=== PATIENT | female | born 1955 | race Caucasian/White ===

== ENCOUNTER 2016-11-04 16:55 | Emergency (ER) | payer SELFPAY | END 2016-11-04 17:33 | disposition left against medical advice (07) | LOC: UCCORT 16:55 | DX: N39.9 Disorder of urinary system, unspecified (principal); Z53.21 Procedure and treatment not carried out due to patient leaving prior to being seen by health care provider | CPT/HCPCS: 99211; G0463 ==

== ENCOUNTER 2016-11-05 11:39 | Emergency (ER) | payer SELFPAY ==
[2016-11-05 15:05] VITALS: BP 116/67
--- NOTE | 2016-11-05 15:05 | UC ---
Complaint Female HPI - HPI Summary HPI Summary: complaint of pain wuith urination that started 2 days ago increased frequency and urgency difficulty getting urine out denies fever and chills slight back pain today took some tylenol with some relief and heating pad - History Of Current Complaint Stated Complaint: UTI COMPLAINT Time Seen by Provider: 11/05/16 14:53 Hx Obtained From: Patient - Allergies/Home Medications Allergies/Adverse Reactions: Allergies Allergy/AdvReac Type Severity Reaction Status Date / Time Penicillins Allergy Intermediate Rash Verified 11/05/16 15:05 Erythromycin AdvReac Intermediate GI Upset Verified 11/05/16 15:05 Tetracycline AdvReac Intermediate GI Upset Verified 11/05/16 15:05 PMH/Surg Hx/FS Hx/Imm Hx Previously Healthy: Yes Endocrine History Of: Reports: Thyroid Disease - HX thyroidectomy Denies: Diabetes Cardiovascular History Of: Reports: Hypertension Denies: Cardiac Disorders Respiratory History Of: Denies: COPD, Asthma GI/ History Of: Denies: Ulcer Neurological History Of: Denies: TIA Psychological History Of: Denies: Anxiety Cancer History Of: Denies: Lung Cancer - Surgical History Surgical History: Yes Surgery Procedure, Year, and Place: LEFT KNEE REPLACEMENT, LEFT THYROIDECTOMY now Right - Family History Known Family History: Positive: None Negative: Cardiac Disease, Hypertension, Diabetes - Social History Occupation: Employed Full-time Lives: With Family Alcohol Use: Rare Substance Use Type: None Smoking Status (MU): Former Smoker Have You Smoked in the Last Year: No When Did the Patient Quit Smoking/Using Tobacco: 10/06/12 Review of Systems Constitutional: Negative Skin: Negative Eyes: Negative ENT: Negative Respiratory: Negative Cardiovascular: Negative Gastrointestinal: Abdominal Pain Genitourinary: Dysuria, Hematuria, Frequency, Urgency Motor: Negative Neurovascular: Negative Musculoskeletal: Negative Neurological: Negative Psychological: Negative All Other Systems Reviewed And Are Negative: Yes Physical Exam Triage Information Reviewed: Yes Appearance: No Pain Distress, Well-Nourished, Obese Vital Signs Reviewed: Yes Eyes: Positive: Conjunctiva Clear ENT: Positive: Pharynx normal, TMs normal. Negative: Nasal congestion Neck: Positive: No Lymphadenopathy Respiratory: Positive: Lungs clear, Normal breath sounds, No respiratory distress Abdomen Description: Positive: Nontender, No Organomegaly, Soft. Negative: CVA Tenderness (R), CVA Tenderness (L), Distended, Guarding Bowel Sounds: Positive: Present Musculoskeletal: Positive: No Edema Neurological: Positive: Alert Psychological Exam: Normal Skin Exam: Normal Complaint Female Dx - Differential Dx/Diagnosis Differential Diagnosis/HQI/PQRI: Ureteral Stone, Urinary Tract Infection Provider Diagnoses: UTI Discharge - Discharge Plan Condition: Stable Disposition: HOME Prescriptions: Phenazopyridine TAB* [Pyridium TAB*] 100 mg PO TID #9 tab Sulfamethox/Trimethoprim DS* [Bactrim DS 800/160 TAB*] 1 tab PO BID #10 tab Patient Education Materials: Urinary Tract Infection in Women (ED) Referrals: NORBERTO Aleman [Primary Care Provider] - Additional Instructions: Start antibiotic and pyridium as directed Increase fluids and rest Take acetaminophen or ibuprofen for fever or pain Please review your discharge instructions. If your symptoms do not improve please call your primary care provider or return to urgent care
== END 2016-11-05 15:29 | disposition home or self-care (01) ==
LOC: UCCORT 11:39
DX: N39.0 Urinary tract infection, site not specified (principal); E66.9 Obesity, unspecified; Z96.652 Presence of left artificial knee joint; Z87.891 Personal history of nicotine dependence; Z88.0 Allergy status to penicillin; Z88.1 Allergy status to other antibiotic agents
CPT/HCPCS: 87086; 99212; G0463

== ENCOUNTER 2017-01-18 15:25 | Emergency (ER) | payer OTHER ==
[2017-01-18 15:42] VITALS: BP 145/81
--- NOTE | 2017-01-18 15:55 | UC ---
Respiratory Complaint HPI - HPI Summary HPI Summary: The patient comes in today for: 1. Sinus pressure/rhinitis; Onset: 2-3 days. Palliative/provocative: Nothing makes her symptoms better or worse. Quality: Pressure. Region: Frontal and maxillary Severity: 0/10 Time: Constant. Associated symptoms: Upper tooth pain: Present Rhinitis: yellow Fevers: 100 "a couple nights ago." Chest pain: NOne. Dyspnea: None. Cough: Present and productive of brown material. Cough is nocturnal. Home treatment: [place]. Hoarse voice: present for "a couple days." * - History of Current Complaint Chief Complaint: UCRespiratory Stated Complaint: THROAT,SINUSES Time Seen by Provider: 01/18/17 15:43 Hx Obtained From: Patient, Family/Health And Wellness Advisor Hx Last Menstrual Period: "Long times ago." - Allergies/Home Medications Allergies/Adverse Reactions: Allergies Allergy/AdvReac Type Severity Reaction Status Date / Time Penicillins Allergy Intermediate Rash Verified 01/18/17 15:42 Erythromycin AdvReac Intermediate GI Upset Verified 01/18/17 15:42 Tetracycline AdvReac Intermediate GI Upset Verified 01/18/17 15:42 PMH/Surg Hx/FS Hx/Imm Hx Previously Healthy: No Endocrine History Of: Reports: Thyroid Disease - HX thyroidectomy, Dyslipidemia Denies: Diabetes, Hyperthyroidism, Hypothyroidism Cardiovascular History Of: Reports: Hypertension Denies: Cardiac Disorders, Pacemaker/ICD, Myocardial Infarction, Congestive Heart Failure, Atrial Fibrillation, Deep Vein Thrombosis, Bleeding Disorders Respiratory History Of: Denies: COPD, Asthma, Bronchitis, Pneumonia, Pulmonary Embolism GI/ History Of: Reports: Gastroesophageal Reflux Denies: Ulcer, Gastrointestinal Bleed, Gall Bladder Disease, Kidney Stones, Diverticulitis, Renal Disease, Urosepsis Neurological History Of: Denies: TIA, CVA, Dementia, Seizures, Migraine Psychological History Of: Reports: Anxiety Denies: Depression, Bipolar Disorder, Schizophrenia, Post Traumatic Stress Disorder Cancer History Of: Denies: Lung Cancer, Colorectal Cancer, Breast Cancer, Prostate Cancer, Cervical Cancer Other History Of: Negative For: HIV, Hepatitis B, Hepatitis C, Anticoagulant Therapy - Surgical History Surgical History: Yes Surgery Procedure, Year, and Place: LEFT KNEE REPLACEMENT, LEFT THYROIDECTOMY now Right - Family History Known Family History: Negative: Cardiac Disease, Hypertension, Diabetes - Social History Occupation: Employed Full-time Alcohol Use: None Substance Use Type: None Smoking Status (MU): Former Smoker Have You Smoked in the Last Year: No When Did the Patient Quit Smoking/Using Tobacco: 10/06/12 - Immunization History Most Recent Influenza Vaccination: [id number] Review of Systems Constitutional: Negative Skin: Negative Eyes: Negative ENT: Nasal Discharge Respiratory: Cough Cardiovascular: Negative Gastrointestinal: Negative Genitourinary: Negative All Other Systems Reviewed And Are Negative: Yes Physical Exam Triage Information Reviewed: Yes Appearance: Well-Appearing, No Pain Distress, Well-Nourished Vital Signs: Initial Vital Signs Temp 99.5 F 01/18/17 15:37 Pulse 75 01/18/17 15:37 Resp 16 01/18/17 15:37 BP 145/81 01/18/17 15:37 Pulse Ox 99 01/18/17 15:37 Vital Signs Reviewed: Yes Eyes: Positive: Conjunctiva Clear. Negative: Discharge ENT: Positive: Hearing grossly normal. Negative: Pharyngeal erythema, Nasal congestion, Nasal drainage, TM bulging, TM dull, TM red, Tonsillar swelling, Tonsillar exudate Dental: Negative: Gross Decay/Caries @, Dental Fracture @ Neck: Positive: Supple, Nontender, No Lymphadenopathy, Other: - She has a hoarse voice. Sinuses are tender to palpation.. Negative: Nuchal Rigidity Respiratory: Positive: Lungs clear, No respiratory distress, No accessory muscle use. Negative: Crackles, Wheezing Cardiovascular: Positive: RRR, No Murmur Abdomen Description: Positive: Nontender, No Organomegaly, Soft. Negative: Distended, Guarding Musculoskeletal: Positive: Strength Intact, ROM Intact, No Edema Neurological: Positive: Alert, Muscle Tone Normal Psychological: Positive: Age Appropriate Behavior, Consolable Skin: Negative: rashes, breakdown UC Diagnostic Evaluation - Laboratory O2 Sat by Pulse Oximetry: 99 Respiratory Course/Dx - Differential Dx/Diagnosis Differential Diagnosis/HQI/PQRI: Asthma, Bronchitis, Laryngitis, Sinusitis Provider Diagnoses: Slightly high blood pressure. Sinusitis. Bronchitis. Laryngitis Discharge - Discharge Plan Condition: Stable Disposition: HOME Patient Education Materials: Sinusitis (ED), Acute Bronchitis (ED), Laryngitis (ED) Referrals: NORBERTO Aleman [Primary Care Provider] - 1 Week (Please see your primary care provider in about one to two weeks to see how well you are doing. If you get worse, please be seen sooner.)
== END 2017-01-18 16:17 | disposition home or self-care (01) ==
LOC: UCCORT 15:25
DX: J32.9 Chronic sinusitis, unspecified (principal); J40 Bronchitis, not specified as acute or chronic; J04.0 Acute laryngitis; R03.0 Elevated blood-pressure reading, without diagnosis of hypertension; E78.5 Hyperlipidemia, unspecified; I10 Essential (primary) hypertension; K21.9 Gastro-esophageal reflux disease without esophagitis; F41.9 Anxiety disorder, unspecified; E89.0 Postprocedural hypothyroidism; Z96.652 Presence of left artificial knee joint; Z88.1 Allergy status to other antibiotic agents; Z88.0 Allergy status to penicillin
CPT/HCPCS: 99212; G0463

== ENCOUNTER 2017-04-20 17:41 | Emergency (ER) | payer OTHER ==
--- NOTE | 2017-04-20 17:52 | UC ---
Skin Complaint HPI - HPI Summary HPI Summary: 89 year old female presents with dog scratch on right forearm. - History of Current Complaint Time Seen by Provider: 04/20/17 17:52 Stated Complaint: SKIN COMPLAINT Hx Last Menstrual Period: "Long times ago." - Allergy/Home Medications Allergies/Adverse Reactions: Allergies Allergy/AdvReac Type Severity Reaction Status Date / Time Penicillins Allergy Intermediate Rash Verified 04/20/17 18:05 Erythromycin AdvReac Intermediate GI Upset Verified 04/20/17 18:05 Tetracycline AdvReac Intermediate GI Upset Verified 04/20/17 18:05 Azithromycin AdvReac Vomiting Verified 04/20/17 18:05 Home Medications: Home Medications Meloxicam [Mobic] 7.5 mg PO DAILY 04/20/17 [History Confirmed 04/20/17] Rosuvastatin (NF) [Crestor (NF)] 10 mg PO DAILY 04/20/17 [History Confirmed ] Thyroid [Shoe Clerk Thyroid 15] 60 mg PO DAILY 04/20/17 [History Confirmed 04/20/17] Venlafaxine EXT RELEASE CAP* [Effexor Xr CAP*] 150 mg PO DAILY 04/20/17 [ History Confirmed 04/20/17] Review of Systems Constitutional: Negative Skin: Other - right forearm dog scratch Eyes: Negative ENT: Negative Respiratory: Negative Cardiovascular: Negative Gastrointestinal: Negative Genitourinary: Negative Motor: Negative Neurovascular: Negative Musculoskeletal: Negative Neurological: Negative Psychological: Negative All Other Systems Reviewed And Are Negative: Yes PMH/Surg Hx/FS Hx/Imm Hx Other History Of: Negative For: HIV, Hepatitis B, Hepatitis C, Anticoagulant Therapy - Surgical History Surgical History: Yes Surgery Procedure, Year, and Place: LEFT KNEE REPLACEMENT, LEFT THYROIDECTOMY now Right - Family History Known Family History: Positive: None Negative: Cardiac Disease, Hypertension, Diabetes - Social History Alcohol Use: None Substance Use Type: None Smoking Status (MU): Former Smoker Have You Smoked in the Last Year: No When Did the Patient Quit Smoking/Using Tobacco: 10/06/12 - Immunization History Most Recent Influenza Vaccination: [id number] Physical Exam Triage Information Reviewed: Yes Eye Exam: Normal ENT Exam: Normal Dental Exam: Normal Neck exam: Normal Neck: Positive: 1 Respiratory Exam: Normal Cardiovascular Exam: Normal Abdominal Exam: Normal Musculoskeletal Exam: Normal Neurological Exam: Normal Psychological Exam: Normal Skin: Positive: Other - right forearm dog scratch Course/Dx - Diagnoses Provider Diagnoses: right forearm dog scratch Discharge - Discharge Plan Condition: Stable Disposition: HOME Prescriptions: Fluconazole [Fluconazole 150 mg tab] 150 mg PO ONCE #1 tab Sulfamethox/Trimethoprim DS* [Bactrim DS 800/160 TAB*] 1 tab PO BID #14 tab Patient Education Materials: Acute Rash (ED) Referrals: NORBERTO Aleman [Primary Care Provider] - If Needed
[2017-04-20] MEDS ORDERED: Tetan/Diph/Pertus SYR(Tdap)* 0.5 ML SYR(BOOSTRIX) use SYR IM ONE (17:59)
[2017-04-20 18:12] VITALS: BP 111/67
== END 2017-04-20 18:38 | disposition home or self-care (01) ==
LOC: UCCORT 17:41
DX: S50.811A Abrasion of right forearm, initial encounter (principal); X58.XXXA Exposure to other specified factors, initial encounter; Y93.9 Activity, unspecified; Y92.9 Unspecified place or not applicable; Y99.9 Unspecified external cause status
CPT/HCPCS: 90471; 90715; 99212; G0463

== ENCOUNTER 2018-05-21 21:43 | Emergency (ER) | payer OTHER ==
--- OUTSIDE RECORDS SUMMARY | 2018-05-21 21:53 | XMS REPORT ---
:1955 External Reference #:[id number] Author Organization [facility] Address [address], [address] [place] [address] Phone [phone] Care Team Providers Name Role Phone Neyda Lemos PA Care Team Information Call Manager Unavailable Neyda Lemos PA Primary Care Physician Unavailable Payers Type Date Identification Numbers Payment Provider Subscriber Commercial Effective: Policy Number: [employer] Afshan Coleman 2017 [id number] PayID: [id number] [address] [place] [address] Problems Date Description Provider Status Onset: 04/15/2017 Bilateral carpal tunnel syndrome IGNACIO Storm Active Onset: 07/30/2017 Malignant tumor of rectum Rowenakaterina Hogue, DO Active Onset: 07/30/2017 Embolism from thrombosis of vein of Rowena Mykel, DO Active distal lower extremity Onset: 10/11/2017 Pulmonary embolism Rowena Mykel, DO Active Onset: 10/11/2017 Acute embolism and thrombosis of left Rowena Bocoltonal, DO Active internal jugular vein Onset: 10/11/2017 Acute embolism and thrombosis of left Rowena Dustinal, DO Active subclavian vein Onset: 10/11/2017 Acute embolism and thrombosis of left Rowena Dustinal, DO Active axillary vein Onset: 02/20/2018 Disturbance in sleep behavior IGNACIO Leal Active Onset: 02/20/2018 Essential hypertension IGNACIO Leal Active Onset: 02/20/2018 Hyperlipidemia IGNACIO Leal Active Onset: 02/20/2018 Adjustment disorder with depressed mood IGNACIO Leal Active Onset: 02/20/2018 Malignant tumor of colon Aidee Banks M.D. 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 Onset: 03/31/2018 Arthroplasty of knee IGNACIO Storm Active Onset: 03/16/2018 Polyneuropathy due to drug Rowena Hogue DO Active Onset: 03/16/2018 History of thromboembolism of vein Rowena Hogue DO Active Family History Date Family Member(s) Problem(s) Comments Father Blood Clot Father due to Heart Attack () - Blood Clot Mother Lung Cancer Mother due to Lung Cancer () Mother due to Cancer () - Bone Uncle Emphysema Social History Type Date Description Comments Marital Status Lives With Alone Diet Patient follows no dietary restrictions Occupation Disabled [employer] Cigarette Use Quit 5 years ago ETOH Use Denies alcohol use Recreational Drug Use Denies Drug Use Smoking Patient is a former smoker As of 2018 quit 6 years ago Daily Caffeine Current Caffeine User Daily Caffeine Consumes on average 1 cup of regular coffee per day Allergies, Adverse Reactions, Alerts Date Description Reaction Status Severity Comments 04/15/2017 Tetracycline active 04/15/2017 Penicillin active 04/15/2017 Erythromycin inactive 04/15/2017 Azithromycin inactive Medications Medication Date Status Form Strength Qnty SIG Indications Ordering Provider Venlafaxine 04/15/ Active Caps ER 150mg 30cap 1 by mouth F41.9 Cayla HCL ER 2017 24HR s every day Sid Ribera Gabapentin 02/23/ Active Capsules 100mg 180ca Take Two Rowena 2018 ps Capsules By jB Hogue Three DO Times A Day Colace 01/19/ Active Capsules 100mg 30cap 1 tab by Cayla Gonzalez s mouth every Sid Ribera day as needed Multivitamin 01/19/ Active Chewtabs 30uni 1 tab by Cayla Gomez Womens 2018 ts mouth every Sid Ribera day Buspirone HCL 01/19/ Active Tablets 10mg 60tab 1 tab by F41.9 Cayla 2018 s mouth Daily Sid Ribera Enoxaparin 11/16/ Active Solution 40mg/0.4ML 60uni 1 sq inj Rowena Sodium 2017 ts q12hr Boufal, DO Pantoprazole 11/11/ Active Tablets DR 40mg 30tab take one Rowena Sodium 2017 s tablet by Boufal, mouth every DO day To Whom It May Active Because of Rowena Concern 2017 current Boufal, medical DO condition of Ms. Coleman it would be necessary for her to discontinue working. Please do not he Lorazepam 07/30/ Active Tablets 0.5mg 30tab 1 tabl by G47.9 Rowena 2016 s mouth every Boufal, night at DO bedtime as needed F41.9 Levothyroxine Active Tablets 137mcg 1 by mouth E03.9 Unknown Sodium every day Rosuvastatin Active Tablets 10mg 3 Take One Caylasusana Pazn, Calcium 0 Tablet By M.D. t Mouth Every a Day AT Bedtime b s Premier Active prn Unknown Anti-Diarrhea Metoprolol Active Tablets 25mg 6 Take One I10 Cayla Mounika, Tartrate 0 Tablet By M.D. t Mouth Twice A a Day b s Lisinopril-Hydr Active Tablets 20-25mg 3 Take One I10 Cayla Mounika, ochlorothiazide 0 Tablet By M.D. t Mouth Every a Day b s Sulfamethoxazol 01/20/2018 - Hx Tablets 800-160m 1 1 by mouth Christopher e/Trimethoprim 03/09/2018 g 4 twice a day H. trista Clark M.D. s Venlafaxine HCL 01/19/2018 - Hx Tablets ER 150mg 3 1 tab by mouth F41.9 Cayla Mounika, ER 04/15/2018 24HR 0 every day Sid weston b s Lidocaine-Prilo 01/12/2018 Hx Cream 2.5-2.5% 3 apply Rowena eddie 0 liberally to Boufal, DO g mediport site m at least one hour prior to appointment. Clindamycin HCL 12/23/2017 - Hx Capsules 300mg 4 1 cap by mouth Rowena 01/04/2018 2 every 6 hours Boufal, DO c x 7 days a p s Levofloxacin 12/01/2017 - Hx Tablets 250mg 7 Take 1 tablet Rowena 12/15/2017 t by mouth every Boufal, DO a 24 hrs. Begin b 24hours after s previous script is finished Levofloxacin 11/25/2017 - Hx Tablets 500mg 7 Take 1 tablet Rowena 12/15/2017 t by mouth every Boufal, DO a 24 hours x 7 b days. Stop s Ciprofloxacin Ciprofloxacin 11/23/2017 - Hx Tablets 500mg 1 1 by mouth Rowena HCL 11/25/2017 4 every 12 hours Boufal, DO t x 7 days a b s Pyridoxine HCL 11/10/2017 - Hx Tablets 100mg 6 1 tablet by Rowena 12/15/2017 0 mouth every 12 Boufal, DO t hours a b s Ondansetron 08/10/2017 - Hx Tablets 8mg 3 take one Rowena 01/19/2018 Dispers 0 tablet by Boufal, DO t mouth every 8 a hours as b needed for s nausea Imodium A-D 08/10/2017 - Hx Tablets 2mg 6 take 2 tabs by Rowena 08/30/2017 0 mouth with the Boufal, DO t first loose a stool. take 1 b tab by mouth s with each additional loose stool.max 8 tabs/day Azithromycin 08/10/2017 - Hx Tablets 250mg 6 Take 2 tablets Rowena 08/30/2017 t by mouth on Boufal, DO a 08/10, then b take 1 tablet s by mouth every 24 hours x 4 days Sulfamethoxazol 07/22/2017 - Hx Tablets 800-160m 1 1 po bid Christopher e/Trimethoprim 07/30/2017 g 0 H. trista Clrak M.D. b s Venlafaxine HCL - Hx Caps ER 75mg 3 2 by mouth Cayla Ribera, ER 01/19/2018 24HR 0 every day MPaul c a p s Paroxetine HCL - Hx Tablets 10mg 1 by mouth Unknown 11/17/2017 every day Metoprolol - Hx Tablets ER 25mg 1 by mouth Unknown Succinate ER 07/08/2017 24HR every day Thyroid - Hx Tablets 65mg Unknown 07/30/2017 Meloxicam - Hx Tablets 7.5mg 1 by mouth Unknown 07/08/2017 every day Guaifenesin-Cod - Hx Solution 100-10mg 10 milliliters Unknown eine 08/30/2017 /5ML by mouth every 4 hours as needed Colace - Hx Capsules 100mg 1 tab by mouth Unknown 01/19/2018 twice a day as needed for constipation Motrin Ib - Hx Tablets 400mg as needed Unknown 08/30/2017 every 6 hrs Enoxaparin Hx Solution 80mg/0.8 1 80 mg s.c. q12 Rowena Sodium ML 6 hours Dustinal, DO m l Multi Adult - Hx Chewtabs 1 by mouth Unknown Gummies 01/19/2018 every day Bactrim DS - Hx Tablets 800-160m 1 tab by mouth Unknown 03/09/2018 g twice a day Vital Signs Date Vital Result Comment 04/20/2018 BP Systolic 128 mmHg Left BP Diastolic 84 mmHg Left Body Temperature 97.3 F Heart Rate 76 /min Respiratory Rate 18 /min Weight 183.38 lb O2 % BldC Oximetry 96 % Pain Level 0 04/06/2018 BP Systolic 134 mmHg Left BP Diastolic 81 mmHg Left Body Temperature 97.3 F Heart Rate 83 /min Respiratory Rate 20 /min Weight 183.00 lb O2 % BldC Oximetry 97 % Pain Level 0 03/31/2018 BP Systolic Sitting Left Arm 105 mmHg BP Diastolic Sitting Left Arm 71 mmHg Body Temperature 98.0 F Heart Rate 86 /min Respiratory Rate 19 /min Height 64.5 inches 5'4.50" Weight 184.00 lb BMI (Body Mass Index) 31.1 kg/m2 BSA (Body Surface Area) 1.90 m2 Butterfield body weight in kilograms 56 O2 % BldC Oximetry 96 % 03/23/2018 BP Systolic 135 mmHg BP Diastolic 86 mmHg Body Temperature 97.3 F Heart Rate 77 /min Respiratory Rate 20 /min Weight 186.38 lb O2 % BldC Oximetry 97 % Pain Level 6 Left Knee 03/16/2018 BP Systolic 136 mmHg BP Diastolic 83 mmHg Body Temperature 98.4 F Heart Rate 80 /min Respiratory Rate 18 /min Weight 184.00 lb O2 % BldC Oximetry 95 % Pain Level 0 03/09/2018 BP Systolic 127 mmHg Left BP Diastolic 59 mmHg Left Body Temperature 97.8 F Heart Rate 72 /min Respiratory Rate 20 /min Weight 185.38 lb O2 % BldC Oximetry 97 % Pain Level 0 03/07/2018 BP Systolic 141 mmHg *No meds yet today BP Diastolic 95 mmHg *No meds yet today Body Temperature 98.6 F Heart Rate 87 /min Respiratory Rate 20 /min Weight 185.00 lb O2 % BldC Oximetry 96 % Pain Level 0 02/23/2018 BP Systolic 114 mmHg Left BP Diastolic 74 mmHg Left Body Temperature 97.3 F Heart Rate 74 /min Respiratory Rate 20 /min Weight 183.38 lb O2 % BldC Oximetry 97 % Pain Level 0 02/09/2018 BP Systolic 127 mmHg Left BP Diastolic 77 mmHg Left Body Temperature 97.7 F Heart Rate 79 /min Respiratory Rate 20 /min Weight 185.25 lb O2 % BldC Oximetry 94 % Pain Level 3 Throat 01/26/2018 BP Systolic 125 mmHg Right BP Diastolic 74 mmHg Right Body Temperature 97.5 F Heart Rate 92 /min Respiratory Rate 20 /min Weight 182.00 lb O2 % BldC Oximetry 97 % Pain Level 0 01/19/2018 BP Systolic Sitting Right Arm 120 mmHg BP Diastolic Sitting Right Arm 68 mmHg Body Temperature 98.9 F Heart Rate 100 /min Height 64.5 inches 5'4.50" Weight 180.12 lb BMI (Body Mass Index) 30.4 kg/m2 BSA (Body Surface Area) 1.88 m2 Butterfield body weight in kilograms 56 O2 % BldC Oximetry 99 % 01/12/2018 BP Systolic 107 mmHg Left BP Diastolic 67 mmHg Left Body Temperature 97.8 F Heart Rate 78 /min Respiratory Rate 20 /min Weight 182.50 lb O2 % BldC Oximetry 96 % Pain Level 0 01/04/2018 BP Systolic 137 mmHg Left BP Diastolic 88 mmHg Left Body Temperature 97.3 F Heart Rate 78 /min Respiratory Rate 20 /min Weight 181.00 lb O2 % BldC Oximetry 97 % Pain Level 0 12/27/2017 BP Systolic 136 mmHg BP Diastolic 78 mmHg Body Temperature 98.6 F Heart Rate 106 /min O2 % BldC Oximetry 94 % 12/23/2017 BP Systolic 117 mmHg BP Diastolic 82 mmHg Body Temperature 97.8 F Heart Rate 84 /min Weight 180.00 lb O2 % BldC Oximetry 93 % 12/15/2017 BP Systolic 106 mmHg BP Diastolic 59 mmHg Body Temperature 98.0 F Heart Rate 69 /min Respiratory Rate 18 /min Weight 181.50 lb O2 % BldC Oximetry 96 % Pain Level 0 12/14/2017 BP Systolic 113 mmHg BP Diastolic 76 mmHg Body Temperature 98.8 F Heart Rate 76 /min Weight 182.00 lb O2 % BldC Oximetry 97 % 12/01/2017 BP Systolic 135 mmHg BP Diastolic 79 mmHg Body Temperature 96.6 F Heart Rate 79 /min Respiratory Rate 20 /min Weight 182.12 lb O2 % BldC Oximetry 97 % Pain Level 0 11/29/2017 BP Systolic 125 mmHg BP Diastolic 61 mmHg Body Temperature 97.8 F Heart Rate 71 /min Respiratory Rate 18 /min Weight 181.25 lb O2 % BldC Oximetry 95 % Pain Level 0 11/23/2017 BP Systolic 117 mmHg BP Diastolic 73 mmHg Body Temperature 98.2 F Heart Rate 84 /min Respiratory Rate 20 /min O2 % BldC Oximetry 98 % Pain Level 0 11/17/2017 BP Systolic 121 mmHg BP Diastolic 81 mmHg Body Temperature 98.7 F Heart Rate 97 /min Weight 181.25 lb O2 % BldC Oximetry 98 % 11/10/2017 BP Systolic 112 mmHg BP Diastolic 68 mmHg Body Temperature 97.3 F Heart Rate 91 /min Respiratory Rate 16 /min O2 % BldC Oximetry 98 % Pain Level 0 10/27/2017 BP Systolic 141 mmHg BP Diastolic 93 mmHg Body Temperature 98.0 F Heart Rate 89 /min Respiratory Rate 20 /min Weight 184.00 lb O2 % BldC Oximetry 100 % Pain Level 0 10/26/2017 BP Systolic 148 mmHg BP Diastolic 84 mmHg Body Temperature 97.3 F Heart Rate 84 /min Respiratory Rate 20 /min Weight 184.25 lb O2 % BldC Oximetry 98 % Pain Level 0 09/10/2017 BP Systolic 124 mmHg BP Diastolic 88 mmHg Body Temperature 78.4 F Heart Rate 84 /min Weight 189.00 lb O2 % BldC Oximetry 94 % 08/30/2017 BP Systolic 143 mmHg BP Diastolic 88 mmHg Body Temperature 98.3 F Heart Rate 79 /min Weight 188.00 lb O2 % BldC Oximetry 96 % 08/23/2017 BP Systolic 150 mmHg BP Diastolic 105 mmHg Body Temperature 99.4 F Heart Rate 88 /min Respiratory Rate 20 /min O2 % BldC Oximetry 98 % Pain Level 7 mouth, throat, nose sores. swelling in the hands 08/17/2017 BP Systolic 158 mmHg BP Diastolic 93 mmHg Body Temperature 99.8 F Heart Rate 89 /min Respiratory Rate 20 /min Weight 192.12 lb O2 % BldC Oximetry 97 % 08/13/2017 BP Systolic 145 mmHg BP Diastolic 90 mmHg Body Temperature 98.0 F Heart Rate 92 /min Respiratory Rate 20 /min O2 % BldC Oximetry 96 % Pain Level 8 RT Foot/Left Buttock 08/10/2017 BP Systolic 142 mmHg BP Diastolic 95 mmHg Body Temperature 98.1 F Heart Rate 104 /min Respiratory Rate 20 /min Weight 198.00 lb O2 % BldC Oximetry 98 % Pain Level 5 Feet 07/30/2017 BP Systolic 131 mmHg BP Diastolic 81 mmHg Body Temperature 98.3 F Heart Rate 96 /min Height 65.75 inches 5'5.75" Weight 192.00 lb BMI (Body Mass Index) 31.2 kg/m2 BSA (Body Surface Area) 1.96 m2 Butterfield body weight in kilograms 58 O2 % BldC Oximetry 95 % 07/08/2017 BP Systolic 126 mmHg BP Diastolic 88 mmHg Height 64 inches 5'4" Weight 190.00 lb BMI (Body Mass Index) 32.6 kg/m2 BSA (Body Surface Area) 1.91 m2 Butterfield body weight in kilograms 54 04/15/2017 BP Systolic Sitting Right Arm 135 mmHg BP Diastolic Sitting Right Arm 84 mmHg Heart Rate 76 /min Height 64 inches 5'4" Weight 190.00 lb BMI (Body Mass Index) 32.6 kg/m2 BSA (Body Surface Area) 1.91 m2 Butterfield body weight in kilograms 54 Results Test Date Test Result H/L Range Note CBS W/Automated Diff 04/19/2018 White Blood Count 5.3 K/uL 3.1-10.7 1 Red Blood Count 3.03 M/uL Low 3.90-5.40 1 Hemoglobin 11.2 gm/dL Low 11.6-15.8 1 Hematocrit 33.3 % Low 36.0-46.1 1 Mean Cell Volume 109.9 fl High 80.9-99.0 1 Mean Corpuscular HGB 37.0 pg High 25.9-32.7 1 Mean Corpuscular HGB Conc 33.6 g/dL 30.8-34.3 1 Platelet Count 119 K/uL Low 155-360 1 Red Cell Distri Width SD 64.4 fl High 3-47 1 Red Cell Distri Width %CV 16.6 % High 11.7-14.4 1 Mean Platelet Volume 10.9 fL 8.9-12.4 1 Neut% 64.6 % 40.4-72.8 1 Lymph % 20.6 % 20.0-42.0 1 Fleming % 13.6 % High 4.3-13.2 1 Eo% 0.8 % 0.0-6.6 1 Bas% 0.4 % 0.0-1.1 1 Neut# 3.43 K/uL 1.8-7.0 1 Lymph # 1.09 K/uL 1.0-4.0 1 Fleming # 0.72 K/uL 0.3-0.9 1 Eos # 0.04 K/uL 0.0-0.5 1 Baso # 0.02 K/uL 0.0-0.1 1 Comprehensive Metabolic Panel 04/19/2018 Glucose 110 mg/dL High 74-106 1 BUN 12 mg/dL 7-18 1 Creatinine 0.8 mg/dL 0.6-1.3 1 Glom Filtration Rate, Estimate >60 mL/min >60 1 If >60 mL/min >60 1, 2 BUN/Creat 15.0 ratio 1 Sodium 143 mmol/L 136-145 1 Potassium 3.4 mmol/L Low 3.5-5.1 1 Chloride 106 mmol/L 98-107 1 Carbon Dioxide 30 mmol/L 21-32 1 Anion Gap 7 mEq/L Low 8-16 1 Calcium 9.2 mg/dL 8.5-10.1 1 Total Protein 7.8 g/dL 6.4-8.2 1 Albumin 3.6 g/dL 3.4-5.0 1 Globulin 4.2 g/dL 1.9-4.3 1 Alb/Glob 0.9 ratio 1 Bilirubin,Total 0.7 mg/dL 0.2-1.0 1 Sgot/Ast 57 U/L High 15-37 1 SGPT/Alt 72 U/L 12-78 1 Alkaline Phosphatase 205 U/L High 45-117 1 Laboratory test finding 04/19/2018 Magnesium 1.7 mg/dL Low 1.8-2.4 1, 3 Laboratory test finding 04/06/2018 Cea 43.5 ng/mL 4, 5 CBS W/Automated Diff 04/05/2018 White Blood Count 3.5 K/uL 3.1-10.7 6 Red Blood Count 3.25 M/uL Low 3.90-5.40 6 Hemoglobin 11.4 gm/dL Low 11.6-15.8 6 Hematocrit 34.6 % Low 36.0-46.1 6 Mean Cell Volume 106.5 fl High 80.9-99.0 6 Mean Corpuscular HGB 35.1 pg High 25.9-32.7 6 Mean Corpuscular HGB Conc 32.9 g/dL 30.8-34.3 6 Platelet Count 115 K/uL Low 155-360 6 Red Cell Distri Width SD 62.9 fl High 3-47 6 Red Cell Distri Width %CV 17.1 % High 11.7-14.4 6 Mean Platelet Volume 11.2 fL 8.9-12.4 6 Neut% 50.9 % 40.4-72.8 6 Lymph % 29.0 % 20.0-42.0 6 Fleming % 18.6 % High 4.3-13.2 6 Eo% 0.9 % 0.0-6.6 6 Bas% 0.6 % 0.0-1.1 6 Neut# 1.76 K/uL Low 1.8-7.0 6 Lymph # 1.00 K/uL 1.0-4.0 6 Fleming # 0.64 K/uL 0.3-0.9 6 Eos # 0.03 K/uL 0.0-0.5 6 Baso # 0.02 K/uL 0.0-0.1 6 Comprehensive Metabolic Panel 04/05/2018 Glucose 110 mg/dL High 74-106 6 BUN 13 mg/dL 7-18 6 Creatinine 1.0 mg/dL 0.6-1.3 6 Glom Filtration Rate, Estimate 60 mL/min >60 6 If >60 mL/min >60 6, 7 BUN/Creat 13.0 ratio 6 Sodium 142 mmol/L 136-145 6 Potassium 3.1 mmol/L Low 3.5-5.1 6 Chloride 105 mmol/L 98-107 6 Carbon Dioxide 30 mmol/L 21-32 6 Anion Gap 7 mEq/L Low 8-16 6 Calcium 9.3 mg/dL 8.5-10.1 6 Total Protein 8.0 g/dL 6.4-8.2 6 Albumin 3.8 g/dL 3.4-5.0 6 Globulin 4.2 g/dL 1.9-4.3 6 Alb/Glob 0.9 ratio 6 Bilirubin,Total 0.8 mg/dL 0.2-1.0 6 Sgot/Ast 58 U/L High 15-37 6 SGPT/Alt 59 U/L 12-78 6 Alkaline Phosphatase 186 U/L High 45-117 6 Laboratory test finding 04/05/2018 Magnesium 1.9 mg/dL 1.8-2.4 6 Xray 03/24/2018 CT, Neck Soft Tissue With <pending> Contrast CT, Chest, With Contrast Materials <pending> CT, Abdomen & Pelvis W Contrast <pending> Laboratory test finding 03/23/2018 Uric Acid 5.3 mg/dL 2.6-6.0 8, 9 Xray 03/23/2018 Knee Complete 4 Or More <pending> Views CBS W/Automated Diff 03/22/2018 White Blood Count 4.0 K/uL 3.1-10.7 10 Red Blood Count 3.20 M/uL Low 3.90-5.40 10 Hemoglobin 11.4 gm/dL Low 11.6-15.8 10 Hematocrit 33.1 % Low 36.0-46.1 10 Mean Cell Volume 103.4 fl High 80.9-99.0 10 Mean Corpuscular HGB 35.6 pg High 25.9-32.7 10 Mean Corpuscular HGB Conc 34.4 g/dL High 30.8-34.3 10 Platelet Count 114 K/uL Low 155-360 10 Red Cell Distri Width SD 61.1 fl High 3-47 10 Red Cell Distri Width %CV 16.7 % High 11.7-14.4 10 Mean Platelet Volume 10.9 fL 8.9-12.4 10 Neut% 63.5 % 40.4-72.8 10 Lymph % 19.3 % Low 20.0-42.0 10 Fleming % 16.1 % High 4.3-13.2 10 Eo% 0.8 % 0.0-6.6 10 Bas% 0.3 % 0.0-1.1 10 Neut# 2.53 K/uL 1.8-7.0 10 Lymph # 0.77 K/uL Low 1.0-4.0 10 Fleming # 0.64 K/uL 0.3-0.9 10 Eos # 0.03 K/uL 0.0-0.5 10 Baso # 0.01 K/uL 0.0-0.1 10 Comprehensive Metabolic Panel 03/22/2018 Glucose 111 mg/dL High 74-106 10 BUN 15 mg/dL 7-18 10 Creatinine 0.9 mg/dL 0.6-1.3 10 Glom Filtration Rate, Estimate >60 mL/min >60 10 If >60 mL/min >60 10, 11 BUN/Creat 16.6 ratio 10 Sodium 146 mmol/L High 136-145 10 Potassium 3.2 mmol/L Low 3.5-5.1 10 Chloride 108 mmol/L High 98-107 10 Carbon Dioxide 26 mmol/L 21-32 10 Anion Gap 12 mEq/L 8-16 10 Calcium 9.0 mg/dL 8.5-10.1 10 Total Protein 7.6 g/dL 6.4-8.2 10 Albumin 3.6 g/dL 3.4-5.0 10 Globulin 4.0 g/dL 1.9-4.3 10 Alb/Glob 0.9 ratio 10 Bilirubin,Total 0.6 mg/dL 0.2-1.0 10 Sgot/Ast 40 U/L High 15-37 10 SGPT/Alt 46 U/L 12-78 10 Alkaline Phosphatase 156 U/L High 45-117 10 Laboratory test finding 03/22/2018 Magnesium 1.7 mg/dL Low 1.8-2.4 10 Occult Blood,Triple 03/08/2018 Fecal Occult Blood #1 Positive (Negative) 12 Fecal Occult Blood #2 Negative (Negative) 12 Fecal Occult Blood #3 Negative (Negative) 12 CBS W/Automated Diff 03/07/2018 White Blood Count 4.1 K/uL 3.1-10.7 13 Red Blood Count 3.33 M/uL Low 3.90-5.40 13 Hemoglobin 11.5 gm/dL Low 11.6-15.8 13 Hematocrit 34.2 % Low 36.0-46.1 13 Mean Cell Volume 102.7 fl High 80.9-99.0 13 Mean Corpuscular HGB 34.5 pg High 25.9-32.7 13 Mean Corpuscular HGB Conc 33.6 g/dL 30.8-34.3 13 Platelet Count 101 K/uL Low 155-360 13 Red Cell Distri Width SD 56.9 fl High 3-47 13 Red Cell Distri Width %CV 16.5 % High 11.7-14.4 13 Mean Platelet Volume 9.9 fL 8.9-12.4 13 Neut% 61.0 % 40.4-72.8 13 Lymph % 25.7 % 20.0-42.0 13 Fleming % 11.8 % 4.3-13.2 13 Eo% 1.0 % 0.0-6.6 13 Bas% 0.5 % 0.0-1.1 13 Neut# 2.49 K/uL 1.8-7.0 13 Lymph # 1.05 K/uL 1.0-4.0 13 Fleming # 0.48 K/uL 0.3-0.9 13 Eos # 0.04 K/uL 0.0-0.5 13 Baso # 0.02 K/uL 0.0-0.1 13 Comprehensive Metabolic Panel 03/07/2018 Glucose 132 mg/dL High 74-106 13 BUN 15 mg/dL 7-18 13 Creatinine 0.9 mg/dL 0.6-1.3 13 Glom Filtration Rate, Estimate >60 mL/min >60 13 If >60 mL/min >60 13, 14 BUN/Creat 16.6 ratio 13 Sodium 141 mmol/L 136-145 13 Potassium 3.3 mmol/L Low 3.5-5.1 13 Chloride 107 mmol/L 98-107 13 Carbon Dioxide 25 mmol/L 21-32 13 Anion Gap 9 mEq/L 8-16 13 Calcium 8.6 mg/dL 8.5-10.1 13 Total Protein 7.5 g/dL 6.4-8.2 13 Albumin 3.6 g/dL 3.4-5.0 13 Globulin 3.9 g/dL 1.9-4.3 13 Alb/Glob 0.9 ratio 13 Bilirubin,Total 0.4 mg/dL 0.2-1.0 13 Sgot/Ast 69 U/L High 15-37 13 SGPT/Alt 68 U/L 12-78 13 Alkaline Phosphatase 167 U/L High 45-117 13 Laboratory test finding 03/07/2018 Magnesium 1.8 mg/dL 1.8-2.4 13 Xray 02/23/2018 Wrist Complete Include <pending> Navicular CBS W/Automated Diff 02/22/2018 White Blood Count 4.3 K/uL 3.1-10.7 15 Red Blood Count 3.42 M/uL Low 3.90-5.40 15 Hemoglobin 11.8 gm/dL 11.6-15.8 15 Hematocrit 34.4 % Low 36.0-46.1 15 Mean Cell Volume 100.6 fl High 80.9-99.0 15 Mean Corpuscular HGB 34.5 pg High 25.9-32.7 15 Mean Corpuscular HGB Conc 34.3 g/dL 30.8-34.3 15 Platelet Count 113 K/uL Low 155-360 15 Red Cell Distri Width SD 55.7 fl High 3-47 15 Red Cell Distri Width %CV 16.2 % High 11.7-14.4 15 Mean Platelet Volume 9.5 fL 8.9-12.4 15 Neut% 60.4 % 40.4-72.8 15 Lymph % 21.9 % 20.0-42.0 15 Fleming % 15.9 % High 4.3-13.2 15 Eo% 1.6 % 0.0-6.6 15 Bas% 0.2 % 0.0-1.1 15 Neut# 2.61 K/uL 1.8-7.0 15 Lymph # 0.95 K/uL Low 1.0-4.0 15 Fleming # 0.69 K/uL 0.3-0.9 15 Eos # 0.07 K/uL 0.0-0.5 15 Baso # 0.01 K/uL 0.0-0.1 15 Comprehensive Metabolic Panel 02/22/2018 Glucose 150 mg/dL High 74-106 15 BUN 15 mg/dL 7-18 15 Creatinine 0.8 mg/dL 0.6-1.3 15 Glom Filtration Rate, Estimate >60 mL/min >60 15 If >60 mL/min >60 15, 16 BUN/Creat 18.7 ratio 15 Sodium 140 mmol/L 136-145 15 Potassium 3.2 mmol/L Low 3.5-5.1 15 Chloride 105 mmol/L 98-107 15 Carbon Dioxide 26 mmol/L 21-32 15 Anion Gap 9 mEq/L 8-16 15 Calcium 9.2 mg/dL 8.5-10.1 15 Total Protein 7.6 g/dL 6.4-8.2 15 Albumin 3.5 g/dL 3.4-5.0 15 Globulin 4.1 g/dL 1.9-4.3 15 Alb/Glob 0.9 ratio 15 Bilirubin,Total 0.5 mg/dL 0.2-1.0 15 Sgot/Ast 57 U/L High 15-37 15 SGPT/Alt 60 U/L 12-78 15 Alkaline Phosphatase 161 U/L High 45-117 15 Laboratory test finding 02/22/2018 Magnesium 1.9 mg/dL 1.8-2.4 15 CBS W/Automated Diff 02/08/2018 White Blood Count 4.2 K/uL 3.1-10.7 17 Red Blood Count 3.73 M/uL Low 3.90-5.40 17 Hemoglobin 12.5 gm/dL 11.6-15.8 17 Hematocrit 37.2 % 36.0-46.1 17 Mean Cell Volume 99.7 fl High 80.9-99.0 17 Mean Corpuscular HGB 33.5 pg High 25.9-32.7 17 Mean Corpuscular HGB Conc 33.6 g/dL 30.8-34.3 17 Platelet Count 107 K/uL Low 155-360 17 Red Cell Distri Width SD 58.0 fl High 3-47 17 Red Cell Distri Width %CV 16.7 % High 11.7-14.4 17 Mean Platelet Volume 10.0 fL 8.9-12.4 17 Neut% 59.6 % 40.4-72.8 17 Lymph % 24.8 % 20.0-42.0 17 Fleming % 14.2 % High 4.3-13.2 17 Eo% 1.2 % 0.0-6.6 17 Bas% 0.2 % 0.0-1.1 17 Neut# 2.53 K/uL 1.8-7.0 17 Lymph # 1.05 K/uL 1.0-4.0 17 Fleming # 0.60 K/uL 0.3-0.9 17 Eos # 0.05 K/uL 0.0-0.5 17 Baso # 0.01 K/uL 0.0-0.1 17 Comprehensive Metabolic Panel 02/08/2018 Glucose 151 mg/dL High 74-106 17 BUN 11 mg/dL 7-18 17 Creatinine 0.8 mg/dL 0.6-1.3 17 Glom Filtration Rate, Estimate >60 mL/min >60 17 If >60 mL/min >60 17, 18 BUN/Creat 13.7 ratio 17 Sodium 140 mmol/L 136-145 17 Potassium 3.4 mmol/L Low 3.5-5.1 17 Chloride 104 mmol/L 98-107 17 Carbon Dioxide 28 mmol/L 21-32 17 Anion Gap 8 mEq/L 8-16 17 Calcium 9.2 mg/dL 8.5-10.1 17 Total Protein 7.7 g/dL 6.4-8.2 17 Albumin 3.6 g/dL 3.4-5.0 17 Globulin 4.1 g/dL 1.9-4.3 17 Alb/Glob 0.9 ratio 17 Bilirubin,Total 0.4 mg/dL 0.2-1.0 17 Sgot/Ast 55 U/L High 15-37 17 SGPT/Alt 74 U/L 12-78 17 Alkaline Phosphatase 155 U/L High 45-117 17 Laboratory test finding 02/08/2018 Magnesium 1.8 mg/dL 1.8-2.4 17 CBS W/Automated Diff 01/25/2018 White Blood Count 4.7 K/uL 3.1-10.7 19 Red Blood Count 3.76 M/uL Low 3.90-5.40 19 Hemoglobin 12.6 gm/dL 11.6-15.8 19 Hematocrit 36.7 % 36.0-46.1 19 Mean Cell Volume 97.6 fl 80.9-99.0 19 Mean Corpuscular HGB 33.5 pg High 25.9-32.7 19 Mean Corpuscular HGB Conc 34.3 g/dL 30.8-34.3 19 Platelet Count 195 K/uL 155-360 19 Red Cell Distri Width SD 60.1 fl High 3-47 19 Red Cell Distri Width %CV 17.1 % High 11.7-14.4 19 Mean Platelet Volume 10.8 fL 8.9-12.4 19 Neut% 63.9 % 40.4-72.8 19 Lymph % 20.9 % 20.0-42.0 19 Fleming % 13.7 % High 4.3-13.2 19 Eo% 1.3 % 0.0-6.6 19 Bas% 0.2 % 0.0-1.1 19 Neut# 3.03 K/uL 1.8-7.0 19 Lymph # 0.99 K/uL Low 1.0-4.0 19 Fleming # 0.65 K/uL 0.3-0.9 19 Eos # 0.06 K/uL 0.0-0.5 19 Baso # 0.01 K/uL 0.0-0.1 19 Comprehensive Metabolic Panel 01/25/2018 Glucose 119 mg/dL High 74-106 19 BUN 9 mg/dL 7-18 19 Creatinine 0.7 mg/dL 0.6-1.3 19 Glom Filtration Rate, Estimate >60 mL/min >60 19 If >60 mL/min >60 19, 20 BUN/Creat 12.8 ratio 19 Sodium 138 mmol/L 136-145 19 Potassium 3.8 mmol/L 3.5-5.1 19 Chloride 103 mmol/L 98-107 19 Carbon Dioxide 30 mmol/L 21-32 19 Anion Gap 5 mEq/L Low 8-16 19 Calcium 9.3 mg/dL 8.5-10.1 19 Total Protein 7.9 g/dL 6.4-8.2 19 Albumin 3.8 g/dL 3.4-5.0 19 Globulin 4.1 g/dL 1.9-4.3 19 Alb/Glob 0.9 ratio 19 Bilirubin,Total 0.4 mg/dL 0.2-1.0 19 Sgot/Ast 59 U/L High 15-37 19 SGPT/Alt 77 U/L 12-78 19 Alkaline Phosphatase 168 U/L High 45-117 19 Laboratory test finding 01/25/2018 Magnesium 1.9 mg/dL 1.8-2.4 19 LDL Cholesterol Profile 01/19/2018 Cholesterol 185 mg/dL <200 21, 22 Triglycerides 164 mg/dL High <150 21, 23 HDL Cholesterol 74 mg/dL >40 21, 24 LDL-Cholesterol 78 mg/dL < 100 21, 25 CBS W/Automated Diff 01/11/2018 White Blood Count 5.6 K/uL 3.1-10.7 26 Red Blood Count 3.61 M/uL Low 3.90-5.40 26 Hemoglobin 11.9 gm/dL 11.6-15.8 26 Hematocrit 35.4 % Low 36.0-46.1 26 Mean Cell Volume 98.1 fl 80.9-99.0 26 Mean Corpuscular HGB 33.0 pg High 25.9-32.7 26 Mean Corpuscular HGB Conc 33.6 g/dL 30.8-34.3 26 Platelet Count 165 K/uL 155-360 26 Red Cell Distri Width SD 62.8 fl High 3-47 26 Red Cell Distri Width %CV 17.8 % High 11.7-14.4 26 Mean Platelet Volume 9.5 fL 8.9-12.4 26 Neut% 71.9 % 40.4-72.8 26 Lymph % 15.1 % Low 20.0-42.0 26 Fleming % 11.9 % 4.3-13.2 26 Eo% 0.7 % 0.0-6.6 26 Bas% 0.4 % 0.0-1.1 26 Neut# 4.00 K/uL 1.8-7.0 26 Lymph # 0.84 K/uL Low 1.0-4.0 26 Fleming # 0.66 K/uL 0.3-0.9 26 Eos # 0.04 K/uL 0.0-0.5 26 Baso # 0.02 K/uL 0.0-0.1 26 Comprehensive Metabolic Panel 01/11/2018 Glucose 108 mg/dL High 74-106 26 BUN 16 mg/dL 7-18 26 Creatinine 0.7 mg/dL 0.6-1.3 26 Glom Filtration Rate, Estimate >60 mL/min >60 26 If >60 mL/min >60 26, 27 BUN/Creat 22.8 ratio 26 Sodium 143 mmol/L 136-145 26 Potassium 3.9 mmol/L 3.5-5.1 26 Chloride 103 mmol/L 98-107 26 Carbon Dioxide 30 mmol/L 21-32 26 Anion Gap 10 mEq/L 8-16 26 Calcium 9.1 mg/dL 8.5-10.1 26 Total Protein 7.6 g/dL 6.4-8.2 26 Albumin 3.4 g/dL 3.4-5.0 26 Globulin 4.2 g/dL 1.9-4.3 26 Alb/Glob 0.8 ratio 26 Bilirubin,Total 0.4 mg/dL 0.2-1.0 26 Sgot/Ast 42 U/L High 15-37 26 SGPT/Alt 48 U/L 12-78 26 Alkaline Phosphatase 143 U/L High 45-117 26 Laboratory test finding 01/11/2018 Magnesium 1.8 mg/dL 1.8-2.4 26, 28 CBS W/Automated Diff 01/03/2018 White Blood Count 3.7 K/uL 3.1-10.7 26 Red Blood Count 3.71 M/uL Low 3.90-5.40 26 Hemoglobin 12.0 gm/dL 11.6-15.8 26 Hematocrit 35.9 % Low 36.0-46.1 26 Mean Cell Volume 96.8 fl 80.9-99.0 26 Mean Corpuscular HGB 32.3 pg 25.9-32.7 26 Mean Corpuscular HGB Conc 33.4 g/dL 30.8-34.3 26 Platelet Count 262 K/uL 155-360 26 Red Cell Distri Width SD 60.3 fl High 3-47 26 Red Cell Distri Width %CV 18.2 % High 11.7-14.4 26 Mean Platelet Volume 9.7 fL 8.9-12.4 26 Neut% 59.1 % 40.4-72.8 26 Lymph % 22.5 % 20.0-42.0 26 Fleming % 17.4 % High 4.3-13.2 26 Eo% 0.5 % 0.0-6.6 26 Bas% 0.5 % 0.0-1.1 26 Neut# 2.20 K/uL 1.8-7.0 26 Lymph # 0.84 K/uL Low 1.0-4.0 26 Fleming # 0.65 K/uL 0.3-0.9 26 Eos # 0.02 K/uL 0.0-0.5 26 Baso # 0.02 K/uL 0.0-0.1 26 Comprehensive Metabolic Panel 01/03/2018 Glucose 127 mg/dL High 74-106 26 BUN 13 mg/dL 7-18 26 Creatinine 0.8 mg/dL 0.6-1.3 26 Glom Filtration Rate, Estimate >60 mL/min >60 26 If >60 mL/min >60 26, 29 BUN/Creat 16.2 ratio 26 Sodium 140 mmol/L 136-145 26 Potassium 3.7 mmol/L 3.5-5.1 26 Chloride 105 mmol/L 98-107 26 Carbon Dioxide 28 mmol/L 21-32 26 Anion Gap 7 mEq/L Low 8-16 26 Calcium 9.5 mg/dL 8.5-10.1 26 Total Protein 8.0 g/dL 6.4-8.2 26 Albumin 3.5 g/dL 3.4-5.0 26 Globulin 4.5 g/dL High 1.9-4.3 26 Alb/Glob 0.8 ratio 26 Bilirubin,Total 0.4 mg/dL 0.2-1.0 26 Sgot/Ast 48 U/L High 15-37 26 SGPT/Alt 60 U/L 12-78 26 Alkaline Phosphatase 172 U/L High 45-117 26 Laboratory test finding 01/03/2018 Magnesium 1.8 mg/dL 1.8-2.4 26 CBS W/Automated Diff 12/23/2017 White Blood Count 6.2 K/uL 3.1-10.7 30 Red Blood Count 3.87 M/uL Low 3.90-5.40 30 Hemoglobin 12.3 gm/dL 11.6-15.8 30 Hematocrit 36.6 % 36.0-46.1 30 Mean Cell Volume 94.6 fl 80.9-99.0 30 Mean Corpuscular HGB 31.8 pg 25.9-32.7 30 Mean Corpuscular HGB Conc 33.6 g/dL 30.8-34.3 30 Platelet Count 217 K/uL 155-360 30 Red Cell Distri Width SD 56.0 fl High 3-47 30 Red Cell Distri Width %CV 17.4 % High 11.7-14.4 30 Mean Platelet Volume 8.9 fL 8.9-12.4 30 Neut% 64.9 % 40.4-72.8 30 Lymph % 19.6 % Low 20.0-42.0 30 Fleming % 13.8 % High 4.3-13.2 30 Eo% 1.4 % 0.0-6.6 30 Bas% 0.3 % 0.0-1.1 30 Neut# 4.05 K/uL 1.8-7.0 30 Lymph # 1.22 K/uL 1.0-4.0 30 Fleming # 0.86 K/uL 0.3-0.9 30 Eos # 0.09 K/uL 0.0-0.5 30 Baso # 0.02 K/uL 0.0-0.1 30 Xray 12/15/2017 dye flow study <pending> CBS W/Automated Diff 12/14/2017 White Blood Count 5.4 K/uL 3.1-10.7 31 Red Blood Count 3.69 M/uL Low 3.90-5.40 31 Hemoglobin 11.6 gm/dL 11.6-15.8 31 Hematocrit 35.5 % Low 36.0-46.1 31 Mean Cell Volume 96.2 fl 80.9-99.0 31 Mean Corpuscular HGB 31.4 pg 25.9-32.7 31 Mean Corpuscular HGB Conc 32.7 g/dL 30.8-34.3 31 Platelet Count 179 K/uL 155-360 31 Red Cell Distri Width SD 56.4 fl High 3-47 31 Red Cell Distri Width %CV 17.1 % High 11.7-14.4 31 Mean Platelet Volume 10.4 fL 8.9-12.4 31 Neut% 70.1 % 40.4-72.8 31 Lymph % 15.7 % Low 20.0-42.0 31 Fleming % 13.1 % 4.3-13.2 31 Eo% 0.7 % 0.0-6.6 31 Bas% 0.4 % 0.0-1.1 31 Neut# 3.75 K/uL 1.8-7.0 31 Lymph # 0.84 K/uL Low 1.0-4.0 31 Fleming # 0.70 K/uL 0.3-0.9 31 Eos # 0.04 K/uL 0.0-0.5 31 Baso # 0.02 K/uL 0.0-0.1 31 Laboratory test finding 12/14/2017 Magnesium 2.0 mg/dL 1.8-2.4 31 Comprehensive Metabolic Panel 12/14/2017 Glucose 102 mg/dL 74-106 31 BUN 15 mg/dL 7-18 31 Creatinine 0.7 mg/dL 0.6-1.3 31 Glom Filtration Rate, Estimate >60 mL/min >60 31 If >60 mL/min >60 31, 32 BUN/Creat 21.4 ratio 31 Sodium 140 mmol/L 136-145 31 Potassium 3.6 mmol/L 3.5-5.1 31 Chloride 105 mmol/L 98-107 31 Carbon Dioxide 28 mmol/L 21-32 31 Anion Gap 7 mEq/L Low 8-16 31 Calcium 9.5 mg/dL 8.5-10.1 31 Total Protein 8.0 g/dL 6.4-8.2 31 Albumin 3.6 g/dL 3.4-5.0 31 Globulin 4.4 g/dL High 1.9-4.3 31 Alb/Glob 0.8 ratio 31 Bilirubin,Total 0.3 mg/dL 0.2-1.0 31 Sgot/Ast 47 U/L High 15-37 31 SGPT/Alt 46 U/L 12-78 31 Alkaline Phosphatase 159 U/L High 45-117 31 Iron-Tibc-%Sat 12/14/2017 Serum Iron 93 g/dL 50-170 31 Total Iron Binding Capacity 338 g/dL 250-450 31 Transferrin %Saturation 28 % 12-57 31 Laboratory test finding 12/14/2017 Ferritin 525 ng/mL High 8-252 31 Vitamin B12 And Folate 12/14/2017 Vitamin B12 1463 pg/mL High 193-986 31 Folic Acid > 20.0 ng/mL High 3.1-17.5 31 Laboratory test 12/14/2017 Vitamin D,25-Hydroxy 26.7 ng/mL Low 30.0-100.0 31, 33 finding Cea 1129.3 ng/mL 31, 34 Xray 12/08/2017 Cta, Chest, W/ Contrast <pending> CT, Abdomen & Pelvis W Contrast <pending> BK Quant PCR 12/01/2017 BK Quantitation PCR Negative copy/mL Negative 35 , 36 (Urine) Urine log10 BK Qn PCR-U (SEE NOTE) 35, 37 CBS W/Automated Diff 12/01/2017 White Blood Count 7.9 K/uL 3.1-10.7 35 Red Blood Count 3.49 M/uL Low 3.90-5.40 35 Hemoglobin 10.8 gm/dL Low 11.6-15.8 35 Hematocrit 33.0 % Low 36.0-46.1 35 Mean Cell Volume 94.6 fl 80.9-99.0 35 Mean Corpuscular HGB 30.9 pg 25.9-32.7 35 Mean Corpuscular HGB Conc 32.7 g/dL 30.8-34.3 35 Platelet Count 257 K/uL 155-360 35 Red Cell Distri Width SD 50.2 fl High 3-47 35 Red Cell Distri Width %CV 15.4 % High 11.7-14.4 35 Mean Platelet Volume 8.8 fL Low 8.9-12.4 35 Neut% 74.5 % High 40.4-72.8 35 Lymph % 14.7 % Low 20.0-42.0 35 Fleming % 10.1 % 4.3-13.2 35 Eo% 0.3 % 0.0-6.6 35 Bas% 0.4 % 0.0-1.1 35 Neut# 5.89 K/uL 1.8-7.0 35 Lymph # 1.16 K/uL 1.0-4.0 35 Fleming # 0.80 K/uL 0.3-0.9 35 Eos # 0.02 K/uL 0.0-0.5 35 Baso # 0.03 K/uL 0.0-0.1 35 Comprehensive Metabolic Panel 12/01/2017 Glucose 132 mg/dL High 74-106 35 BUN 16 mg/dL 7-18 35 Creatinine 0.8 mg/dL 0.6-1.3 35 Glom Filtration Rate, Estimate >60 mL/min >60 35 If >60 mL/min >60 35, 38 BUN/Creat 20.0 ratio 35 Sodium 140 mmol/L 136-145 35 Potassium 4.0 mmol/L 3.5-5.1 35 Chloride 106 mmol/L 98-107 35 Carbon Dioxide 27 mmol/L 21-32 35 Anion Gap 7 mEq/L Low 8-16 35 Calcium 9.4 mg/dL 8.5-10.1 35 Total Protein 7.8 g/dL 6.4-8.2 35 Albumin 3.2 g/dL Low 3.4-5.0 35 Globulin 4.6 g/dL High 1.9-4.3 35 Alb/Glob 0.7 ratio 35 Bilirubin,Total 0.2 mg/dL 0.2-1.0 35 Sgot/Ast 36 U/L 15-37 35 SGPT/Alt 34 U/L 12-78 35 Alkaline Phosphatase 192 U/L High 45-117 35 Laboratory test finding 12/01/2017 Magnesium 2.0 mg/dL 1.8-2.4 35 Ua RFX Micro & Culture II 12/01/2017 Urine Color YELLOW Yellow 35 Urine Clarity CLEAR Clear 35 Urine Glucose - Dipstick NEGATIVE mg/dL Negative 35 Urine Bilirubin - Dipstick NEGATIVE Negative 35 Urine Ketone NEGATIVE mg/dL Negative 35 Urine Specific [place] >=1.030 1.010-1.030 35 Urine Blood SMALL Negative 35 Urine PH 5.5 Low 6.5-7.5 35 Urine Protein - Dipstick TRACE mg/dL Negative 35 Urine Urobilinogen - Dipstick 0.2 E.U./dL 0.2-1.0 35 Urine Nitrite - Dipstick NEGATIVE Negative 35 Urine Leuk Esterase NEGATIVE Negative 35 Urine RBC 5-10 rbc/hpf High 0-2 35 Urine WBC 10-20 wbc/hpf High 0-7 35 Urine Epithelial Cells FEW /lpf None Seen 35 Urine Bacteria VERY FEW None Seen 35 Urine Mucus SMALL None Seen 35 Source: URINE, CLEAN CAT <SEE NOTE> 35, 39 Xray 12/01/2017 dye flow study <pending> Laboratory test finding 12/01/2017 Slide Review (SEE NOTE) 35, 40 Urine Culture 12/01/2017 Urine Culture URETHRAL PATTIE 35 Quantity 10,000 - 50,000 <SEE NOTE> 35, 41 Ua RFX Micro & Culture II 11/29/2017 Urine Color YELLOW Yellow 42 Urine Clarity CLEAR Clear 42 Urine Glucose - Dipstick NEGATIVE mg/dL Negative 42 Urine Bilirubin - Dipstick NEGATIVE Negative 42 Urine Ketone NEGATIVE mg/dL Negative 42 Urine Specific [place] >=1.030 1.010-1.030 42 Urine Blood TRACE Negative 42 Urine PH 5.5 Low 6.5-7.5 42 Urine Protein - Dipstick TRACE mg/dL Negative 42 Urine Urobilinogen - Dipstick 0.2 E.U./dL 0.2-1.0 42 Urine Nitrite - Dipstick NEGATIVE Negative 42 Urine Leuk Esterase NEGATIVE Negative 42 Source: URINE, CLEAN CAT <SEE NOTE> 42, 43 Laboratory test finding 11/29/2017 Magnesium <pending> 42 Laboratory test finding 11/23/2017 Magnesium 2.0 mg/dL 1.8-2.4 44, 45 Comprehensive Metabolic Panel 11/23/2017 Glucose 117 mg/dL High 74-106 44 BUN 15 mg/dL 7-18 44 Creatinine 0.8 mg/dL 0.6-1.3 44 Glom Filtration Rate, Estimate >60 mL/min >60 44 If >60 mL/min >60 44, 46 BUN/Creat 18.7 ratio 44 Sodium 138 mmol/L 136-145 44 Potassium 4.1 mmol/L 3.5-5.1 44 Chloride 105 mmol/L 98-107 44 Carbon Dioxide 28 mmol/L 21-32 44 Anion Gap 5 mEq/L Low 8-16 44 Calcium 9.3 mg/dL 8.5-10.1 44 Total Protein 7.9 g/dL 6.4-8.2 44 Albumin 3.0 g/dL Low 3.4-5.0 44 Globulin 4.9 g/dL High 1.9-4.3 44 Alb/Glob 0.6 ratio 44 Bilirubin,Total 0.4 mg/dL 0.2-1.0 44 Sgot/Ast 37 U/L 15-37 44 SGPT/Alt 31 U/L 12-78 44 Alkaline Phosphatase 195 U/L High 45-117 44 CBS W/Automated Diff 11/23/2017 White Blood Count 8.1 K/uL 3.1-10.7 44 Red Blood Count 3.55 M/uL Low 3.90-5.40 44 Hemoglobin 10.9 gm/dL Low 11.6-15.8 44 Hematocrit 33.4 % Low 36.0-46.1 44 Mean Cell Volume 94.1 fl 80.9-99.0 44 Mean Corpuscular HGB 30.7 pg 25.9-32.7 44 Mean Corpuscular HGB Conc 32.6 g/dL 30.8-34.3 44 Platelet Count 211 K/uL 155-360 44 Red Cell Distri Width SD 48.7 fl High 3-47 44 Red Cell Distri Width %CV 15.0 % High 11.7-14.4 44 Mean Platelet Volume 9.0 fL 8.9-12.4 44 Neut% 74.5 % High 40.4-72.8 44 Lymph % 11.7 % Low 20.0-42.0 44 Fleming % 12.9 % 4.3-13.2 44 Eo% 0.7 % 0.0-6.6 44 Bas% 0.2 % 0.0-1.1 44 Neut# 6.06 K/uL 1.8-7.0 44 Lymph # 0.95 K/uL Low 1.0-4.0 44 Fleming # 1.05 K/uL High 0.3-0.9 44 Eos # 0.06 K/uL 0.0-0.5 44 Baso # 0.02 K/uL 0.0-0.1 44 Ast (Sgot) With P5P Ser/Gloria 11/23/2017 Penicillin G <=0.06 44 Tetracycline <=0.25 44 Trimethoprim/Sulfamethoxazole <=10 44 Ampicillin <=0.25 44 Moxifloxacin 0.25 44 Levofloxacin 0.5 44 Ceftriaxone <=0.12 44 Vancomycin 0.25 44 Urine Culture 11/23/2017 Urine Culture STREPTOCOCCUS PY <SEE NOTE> 44, 47 Quantity 10,000 - 100,000 <SEE NOTE> 44, 48 Recommended Therapy: PENICILLIN OR AM <SEE NOTE> 44, 49 Ua RFX Micro & Culture II 11/23/2017 Urine Color YELLOW Yellow 44 Urine Clarity CLOUDY Clear 44 Urine Glucose - Dipstick NEGATIVE mg/dL Negative 44 Urine Bilirubin - Dipstick NEGATIVE Negative 44 Urine Ketone NEGATIVE mg/dL Negative 44 Urine Specific [place] 1.025 1.010-1.030 44 Urine Blood MODERATE Negative 44 Urine PH 6.0 Low 6.5-7.5 44 Urine Protein - Dipstick 30 mg/dL High Negative 44 Urine Urobilinogen - Dipstick 0.2 E.U./dL 0.2-1.0 44 Urine Nitrite - Dipstick NEGATIVE Negative 44 Urine Leuk Esterase MODERATE Negative 44 Urine RBC >50 rbc/hpf High 0-2 44 Urine WBC > 50 wbc/hpf High 0-7 44 Urine Epithelial Cells MODERATE /lpf None Seen 44, 50 Urine Bacteria MODERATE None Seen 44 Source: URINE, CLEAN CAT <SEE NOTE> 44, 51 Slide Review 11/10/2017 Slide Review (SEE NOTE) 52, 53 Laboratory test finding 11/10/2017 Magnesium 2.1 mg/dL 1.8-2.4 52 Comprehensive Metabolic Panel 11/10/2017 Glucose 158 mg/dL High 74-106 52 BUN 34 mg/dL High 7-18 52 Creatinine 1.0 mg/dL 0.6-1.3 52 Glom Filtration Rate, Estimate 60 mL/min >60 52 If >60 mL/min >60 52, 54 BUN/Creat 34.0 ratio 52 Sodium 136 mmol/L 136-145 52 Potassium 4.2 mmol/L 3.5-5.1 52 Chloride 101 mmol/L 98-107 52 Carbon Dioxide 25 mmol/L 21-32 52 Anion Gap 10 mEq/L 8-16 52 Calcium 9.7 mg/dL 8.5-10.1 52 Total Protein 8.4 g/dL High 6.4-8.2 52 Albumin 3.3 g/dL Low 3.4-5.0 52 Globulin 5.1 g/dL High 1.9-4.3 52 Alb/Glob 0.6 ratio 52 Bilirubin,Total 0.3 mg/dL 0.2-1.0 52 Sgot/Ast 37 U/L 15-37 52 SGPT/Alt 30 U/L 12-78 52 Alkaline Phosphatase 223 U/L High 45-117 52 CBS W/Automated Diff 11/10/2017 White Blood Count 9.3 K/uL 3.1-10.7 52 Red Blood Count 3.69 M/uL Low 3.90-5.40 52 Hemoglobin 11.6 gm/dL 11.6-15.8 52 Hematocrit 35.2 % Low 36.0-46.1 52 Mean Cell Volume 95.4 fl 80.9-99.0 52 Mean Corpuscular HGB 31.4 pg 25.9-32.7 52 Mean Corpuscular HGB Conc 33.0 g/dL 30.8-34.3 52 Platelet Count 326 K/uL 155-360 52 Red Cell Distri Width SD 47.6 fl High 3-47 52 Red Cell Distri Width %CV 14.4 % 11.7-14.4 52 Mean Platelet Volume 10.0 fL 8.9-12.4 52 Neut% 78.0 % High 40.4-72.8 52 Lymph % 11.0 % Low 20.0-42.0 52 Fleming % 10.3 % 4.3-13.2 52 Eo% 0.3 % 0.0-6.6 52 Bas% 0.4 % 0.0-1.1 52 Neut# 7.28 K/uL High 1.8-7.0 52 Lymph # 1.03 K/uL 1.0-4.0 52 Fleming # 0.96 K/uL High 0.3-0.9 52 Eos # 0.03 K/uL 0.0-0.5 52 Baso # 0.04 K/uL 0.0-0.1 52 CBS W/Automated Diff 10/26/2017 White Blood Count 9.6 K/uL 3.1-10.7 55 Red Blood Count 3.70 M/uL Low 3.90-5.40 55 Hemoglobin 11.6 gm/dL 11.6-15.8 55 Hematocrit 35.2 % Low 36.0-46.1 55 Mean Cell Volume 95.1 fl 80.9-99.0 55 Mean Corpuscular HGB 31.4 pg 25.9-32.7 55 Mean Corpuscular HGB Conc 33.0 g/dL 30.8-34.3 55 Platelet Count 307 K/uL 155-360 55 Red Cell Distri Width SD 45.3 fl 3-47 55 Red Cell Distri Width %CV 13.6 % 11.7-14.4 55 Mean Platelet Volume 9.5 fL 8.9-12.4 55 Neut% 80.1 % High 40.4-72.8 55 Lymph % 8.6 % Low 20.0-42.0 55 Fleming % 10.5 % 4.3-13.2 55 Eo% 0.6 % 0.0-6.6 55 Bas% 0.2 % 0.0-1.1 55 Neut# 7.65 K/uL High 1.8-7.0 55 Lymph # 0.82 K/uL Low 1.0-4.0 55 Fleming # 1.00 K/uL High 0.3-0.9 55 Eos # 0.06 K/uL 0.0-0.5 55 Baso # 0.02 K/uL 0.0-0.1 55 Comprehensive Metabolic Panel 10/26/2017 Glucose 160 mg/dL High 74-106 55 BUN 13 mg/dL 7-18 55 Creatinine 0.8 mg/dL 0.6-1.3 55 Glom Filtration Rate, Estimate >60 mL/min >60 55 If >60 mL/min >60 55, 56 BUN/Creat 16.2 ratio 55 Sodium 137 mmol/L 136-145 55 Potassium 4.3 mmol/L 3.5-5.1 55 Chloride 102 mmol/L 98-107 55 Carbon Dioxide 27 mmol/L 21-32 55 Anion Gap 8 mEq/L 8-16 55 Calcium 9.3 mg/dL 8.5-10.1 55 Total Protein 8.2 g/dL 6.4-8.2 55 Albumin 3.3 g/dL Low 3.4-5.0 55 Globulin 4.9 g/dL High 1.9-4.3 55 Alb/Glob 0.7 ratio 55 Bilirubin,Total 0.4 mg/dL 0.2-1.0 55 Sgot/Ast 69 U/L High 15-37 55 SGPT/Alt 40 U/L 12-78 55 Alkaline Phosphatase 219 U/L High 45-117 55 Laboratory test finding 10/26/2017 Magnesium 1.9 mg/dL 1.8-2.4 55, 57 Ua RFX Micro & Culture II 10/26/2017 Urine Color YELLOW Yellow 55 Urine Clarity CLEAR Clear 55 Urine Glucose - Dipstick NEGATIVE mg/dL Negative 55 Urine Bilirubin - Dipstick NEGATIVE Negative 55 Urine Ketone NEGATIVE mg/dL Negative 55 Urine Specific [place] 1.020 1.010-1.030 55 Urine Blood TRACE Negative 55 Urine PH 5.5 Low 6.5-7.5 55 Urine Protein - Dipstick NEGATIVE mg/dL Negative 55 Urine Urobilinogen - Dipstick 0.2 E.U./dL 0.2-1.0 55 Urine Nitrite - Dipstick NEGATIVE Negative 55 Urine Leuk Esterase NEGATIVE Negative 55 Source: URINE, CLEAN CAT <SEE NOTE> 55, 58 Slide Review 10/26/2017 Slide Review . 55, 59 CBS W/Automated Diff 10/13/2017 White Blood Count 11.4 K/uL High 3.1-10.7 60 Red Blood Count 3.83 M/uL Low 3.90-5.40 60 Hemoglobin 12.2 gm/dL 11.6-15.8 60 Hematocrit 37.8 % 36.0-46.1 60 Mean Cell Volume 98.7 fl 80.9-99.0 60 Mean Corpuscular HGB 31.9 pg 25.9-32.7 60 Mean Corpuscular HGB Conc 32.3 g/dL 30.8-34.3 60 Platelet Count 426 K/uL High 155-360 60 Red Cell Distri Width SD 49.1 fl High 3-47 60 Red Cell Distri Width %CV 14.1 % 11.7-14.4 60 Mean Platelet Volume 10.0 fL 8.9-12.4 60 Neut% 77.8 % High 40.4-72.8 60 Lymph % 10.5 % Low 20.0-42.0 60 Fleming % 10.5 % 4.3-13.2 60 Eo% 0.9 % 0.0-6.6 60 Bas% 0.3 % 0.0-1.1 60 Neut# 8.86 K/uL High 1.8-7.0 60 Lymph # 1.19 K/uL 1.0-4.0 60 Fleming # 1.19 K/uL High 0.3-0.9 60 Eos # 0.10 K/uL 0.0-0.5 60 Baso # 0.03 K/uL 0.0-0.1 60 Comprehensive Metabolic Panel 10/13/2017 Glucose 154 mg/dL High 74-106 60 BUN 19 mg/dL High 7-18 60 Creatinine 1.0 mg/dL 0.6-1.3 60 Glom Filtration Rate, Estimate 60 mL/min >60 60 If >60 mL/min >60 60, 61 BUN/Creat 19.0 ratio 60 Sodium 139 mmol/L 136-145 60 Potassium 4.0 mmol/L 3.5-5.1 60 Chloride 102 mmol/L 98-107 60 Carbon Dioxide 31 mmol/L 21-32 60 Anion Gap 6 mEq/L Low 8-16 60 Calcium 9.8 mg/dL 8.5-10.1 60 Total Protein 8.7 g/dL High 6.4-8.2 60 Albumin 3.6 g/dL 3.4-5.0 60 Globulin 5.1 g/dL High 1.9-4.3 60 Alb/Glob 0.7 ratio 60 Bilirubin,Total 0.3 mg/dL 0.2-1.0 60 Sgot/Ast 93 U/L High 15-37 60 SGPT/Alt 114 U/L High 12-78 60 Alkaline Phosphatase 323 U/L High 45-117 60 Laboratory test finding 10/13/2017 Magnesium 2.1 mg/dL 1.8-2.4 60 Cea 2284.9 ng/mL 60, 62 Slide Review 10/13/2017 Slide Review . 60, 63 CBS W/Automated Diff 10/08/2017 White Blood Count 8.1 K/uL 3.1-10.7 64 Red Blood Count 3.17 M/uL Low 3.90-5.40 64 Hemoglobin 10.1 gm/dL Low 11.6-15.8 64 Hematocrit 30.4 % Low 36.0-46.1 64 Mean Cell Volume 95.9 fl 80.9-99.0 64 Mean Corpuscular HGB 31.9 pg 25.9-32.7 64 Mean Corpuscular HGB Conc 33.2 g/dL 30.8-34.3 64 Platelet Count 305 K/uL 155-360 64 Red Cell Distri Width SD 44.9 fl 3-47 64 Red Cell Distri Width %CV 13.5 % 11.7-14.4 64 Mean Platelet Volume 9.4 fL 8.9-12.4 64 Neut% 78.6 % High 40.4-72.8 64 Lymph % 9.1 % Low 20.0-42.0 64 Fleming % 10.6 % 4.3-13.2 64 Eo% 1.5 % 0.0-6.6 64 Bas% 0.2 % 0.0-1.1 64 Neut# 6.40 K/uL 1.8-7.0 64 Lymph # 0.74 K/uL Low 1.0-4.0 64 Fleming # 0.86 K/uL 0.3-0.9 64 Eos # 0.12 K/uL 0.0-0.5 64 Baso # 0.02 K/uL 0.0-0.1 64 Comprehensive Metabolic Panel 10/08/2017 Glucose 135 mg/dL High 74-106 64 BUN 7 mg/dL 7-18 64 Creatinine 0.7 mg/dL 0.6-1.3 64 Glom Filtration Rate, Estimate >60 mL/min >60 64 If >60 mL/min >60 64, 65 BUN/Creat 10.0 ratio 64 Sodium 139 mmol/L 136-145 64 Potassium 3.8 mmol/L 3.5-5.1 64 Chloride 103 mmol/L 98-107 64 Carbon Dioxide 27 mmol/L 21-32 64 Anion Gap 9 mEq/L 8-16 64 Calcium 9.1 mg/dL 8.5-10.1 64 Total Protein 7.2 g/dL 6.4-8.2 64 Albumin 2.8 g/dL Low 3.4-5.0 64 Globulin 4.4 g/dL High 1.9-4.3 64 Alb/Glob 0.6 ratio 64 Bilirubin,Total 0.4 mg/dL 0.2-1.0 64 Sgot/Ast 75 U/L High 15-37 64 SGPT/Alt 48 U/L 12-78 64 Alkaline Phosphatase 207 U/L High 45-117 64 Laboratory test 10/06/2017 Platelet Count 257 K/uL 155-360 64 finding Laboratory test 10/06/2017 Act Partial 57.6 seconds High 23.4-35.0 64, 66 finding Thrombo Time CBS W/Automated Diff 09/03/2017 White Blood Count 8.7 K/uL 3.1-10.7 67 Red Blood Count 3.68 M/uL Low 3.90-5.40 67 Hemoglobin 12.0 gm/dL 11.6-15.8 67 Hematocrit 36.4 % 36.0-46.1 67 Mean Cell Volume 98.9 fl 80.9-99.0 67 Mean Corpuscular HGB 32.6 pg 25.9-32.7 67 Mean Corpuscular HGB Conc 33.0 g/dL 30.8-34.3 67 Platelet Count 264 K/uL 155-360 67 Red Cell Distri Width SD 46.6 fl 3-47 67 Red Cell Distri Width %CV 13.7 % 11.7-14.4 67 Mean Platelet Volume 10.4 fL 8.9-12.4 67 Neut% 75.7 % High 40.4-72.8 67 Lymph % 12.9 % Low 20.0-42.0 67 Fleming % 9.8 % 4.3-13.2 67 Eo% 1.3 % 0.0-6.6 67 Bas% 0.3 % 0.0-1.1 67 Neut# 6.61 K/uL 1.8-7.0 67 Lymph # 1.13 K/uL 1.0-4.0 67 Fleming # 0.86 K/uL 0.3-0.9 67 Eos # 0.11 K/uL 0.0-0.5 67 Baso # 0.03 K/uL 0.0-0.1 67 Comprehensive Metabolic Panel 09/03/2017 Glucose 94 mg/dL 74-106 67 BUN 16 mg/dL 7-18 67 Creatinine 0.7 mg/dL 0.6-1.3 67 Glom Filtration Rate, Estimate >60 mL/min >60 67 If >60 mL/min >60 67, 68 BUN/Creat 22.8 ratio 67 Sodium 138 mmol/L 136-145 67 Potassium 3.7 mmol/L 3.5-5.1 67 Chloride 102 mmol/L 98-107 67 Carbon Dioxide 30 mmol/L 21-32 67 Anion Gap 6 mEq/L Low 8-16 67 Calcium 9.5 mg/dL 8.5-10.1 67 Total Protein 7.9 g/dL 6.4-8.2 67 Albumin 3.7 g/dL 3.4-5.0 67 Globulin 4.2 g/dL 1.9-4.3 67 Alb/Glob 0.9 ratio 67 Bilirubin,Total 0.4 mg/dL 0.2-1.0 67 Sgot/Ast 24 U/L 15-37 67 SGPT/Alt 25 U/L 12-78 67 Alkaline Phosphatase 127 U/L High 45-117 67 Laboratory test finding 09/03/2017 Magnesium 2.3 mg/dL 1.8-2.4 67 Cea 744.5 ng/mL 67, 69 CBS W/Automated Diff 08/23/2017 White Blood Count 9.6 K/uL 3.1-10.7 70 Red Blood Count 3.49 M/uL Low 3.90-5.40 70 Hemoglobin 11.5 gm/dL Low 11.6-15.8 70 Hematocrit 34.5 % Low 36.0-46.1 70 Mean Cell Volume 98.9 fl 80.9-99.0 70 Mean Corpuscular HGB 33.0 pg High 25.9-32.7 70 Mean Corpuscular HGB Conc 33.3 g/dL 30.8-34.3 70 Platelet Count 259 K/uL 150-400 70 Red Cell Distri Width SD 42.4 fl 3-47 70 Red Cell Distri Width %CV 13.1 % 11.7-14.4 70 Mean Platelet Volume 10.4 fL 8.9-12.4 70 Neut% 76.9 % High 40.4-72.8 70 Lymph % 10.9 % Low 20.0-42.0 70 Fleming % 9.5 % 4.3-13.2 70 Eo% 2.5 % 0.0-6.6 70 Bas% 0.2 % 0.0-1.1 70 Neut# 7.39 K/uL High 1.8-7.0 70 Lymph # 1.05 K/uL 1.0-4.0 70 Fleming # 0.91 K/uL High 0.3-0.9 70 Eos # 0.24 K/uL 0.0-0.5 70 Baso # 0.02 K/uL 0.0-0.1 70 Comprehensive Metabolic Panel 08/23/2017 Glucose 125 mg/dL High 74-106 70 BUN 17 mg/dL 7-18 70 Creatinine 0.8 mg/dL 0.6-1.3 70 Glom Filtration Rate, Estimate >60 mL/min >60 70 If >60 mL/min >60 70, 71 BUN/Creat 21.2 ratio 70 Sodium 137 mmol/L 136-145 70 Potassium 3.5 mmol/L 3.5-5.1 70 Chloride 101 mmol/L 98-107 70 Carbon Dioxide 28 mmol/L 21-32 70 Anion Gap 8 mEq/L 8-16 70 Calcium 8.9 mg/dL 8.5-10.1 70 Total Protein 7.6 g/dL 6.4-8.2 70 Albumin 3.6 g/dL 3.4-5.0 70 Globulin 4.0 g/dL 1.9-4.3 70 Alb/Glob 0.9 ratio 70 Bilirubin,Total 0.4 mg/dL 0.2-1.0 70 Sgot/Ast 31 U/L 15-37 70 SGPT/Alt 39 U/L 12-78 70 Alkaline Phosphatase 110 U/L 45-117 70 Slide Review 08/23/2017 Slide Review (SEE NOTE) 70, 72 Laboratory test finding 08/23/2017 Magnesium 2.0 mg/dL 1.8-2.4 70, 73 Laboratory test finding 08/17/2017 Magnesium 2.0 mg/dL 1.8-2.4 74, 75 Comprehensive Metabolic Panel 08/17/2017 Glucose 85 mg/dL 74-106 74 BUN 15 mg/dL 7-18 74 Creatinine 0.6 mg/dL 0.6-1.3 74 Glom Filtration Rate, Estimate >60 mL/min >60 74 If >60 mL/min >60 74, 76 BUN/Creat 25.0 ratio 74 Sodium 139 mmol/L 136-145 74 Potassium 3.7 mmol/L 3.5-5.1 74 Chloride 104 mmol/L 98-107 74 Carbon Dioxide 29 mmol/L 21-32 74 Anion Gap 6 mEq/L Low 8-16 74 Calcium 9.0 mg/dL 8.5-10.1 74 Total Protein 7.6 g/dL 6.4-8.2 74 Albumin 3.6 g/dL 3.4-5.0 74 Globulin 4.0 g/dL 1.9-4.3 74 Alb/Glob 0.9 ratio 74 Bilirubin,Total 0.4 mg/dL 0.2-1.0 74 Sgot/Ast 28 U/L 15-37 74 SGPT/Alt 29 U/L 12-78 74 Alkaline Phosphatase 129 U/L High 45-117 74 CBS W/Automated Diff 08/17/2017 White Blood Count 8.6 K/uL 3.1-10.7 74 Red Blood Count 3.43 M/uL Low 3.90-5.40 74 Hemoglobin 11.1 gm/dL Low 11.6-15.8 74 Hematocrit 33.6 % Low 36.0-46.1 74 Mean Cell Volume 98.0 fl 80.9-99.0 74 Mean Corpuscular HGB 32.4 pg 25.9-32.7 74 Mean Corpuscular HGB Conc 33.0 g/dL 30.8-34.3 74 Platelet Count 230 K/uL 150-400 74 Red Cell Distri Width SD 40.2 fl 3-47 74 Red Cell Distri Width %CV 12.0 % 11.7-14.4 74 Mean Platelet Volume 10.1 fL 8.9-12.4 74 Neut% 75.3 % High 40.4-72.8 74 Lymph % 13.8 % Low 20.0-42.0 74 Fleming % 8.6 % 4.3-13.2 74 Eo% 2.1 % 0.0-6.6 74 Bas% 0.2 % 0.0-1.1 74 Neut# 6.46 K/uL 1.8-7.0 74 Lymph # 1.18 K/uL 1.0-4.0 74 Fleming # 0.74 K/uL 0.3-0.9 74 Eos # 0.18 K/uL 0.0-0.5 74 Baso # 0.02 K/uL 0.0-0.1 74 Xray 08/13/2017 Venous Doppler Lower Extremity <pending> Right Differential-WBC Confirm 08/10/2017 Total Cells Counted 100 #CELLS 77 Band% 12 % High 0-8 77 Neutrophils% 64 % 33-73 77 Lymph% 14 % Low 20-42 77 Monocyte% 8 % 0-10 77 Eosinophil% 1 % 0-5 77 Basophil% 1 % 0-2 77 Platelet Estimate NORMAL 77 RBC Morphology NORMAL 77 Slide Review 08/10/2017 Slide Review DIFF ORDERED 77 Laboratory test finding 08/10/2017 Magnesium 2.1 mg/dL 1.8-2.4 77, 78 Comprehensive Metabolic Panel 08/10/2017 Glucose 93 mg/dL 74-106 77 BUN 14 mg/dL 7-18 77 Creatinine 0.7 mg/dL 0.6-1.3 77 Glom Filtration Rate, Estimate >60 mL/min >60 77 If >60 mL/min >60 77, 79 BUN/Creat 20.0 ratio 77 Sodium 140 mmol/L 136-145 77 Potassium 3.5 mmol/L 3.5-5.1 77 Chloride 105 mmol/L 98-107 77 Carbon Dioxide 27 mmol/L 21-32 77 Anion Gap 8 mEq/L 8-16 77 Calcium 9.4 mg/dL 8.5-10.1 77 Total Protein 8.1 g/dL 6.4-8.2 77 Albumin 3.9 g/dL 3.4-5.0 77 Globulin 4.2 g/dL 1.9-4.3 77 Alb/Glob 0.9 ratio 77 Bilirubin,Total 0.4 mg/dL 0.2-1.0 77 Sgot/Ast 37 U/L 15-37 77 SGPT/Alt 36 U/L 12-78 77 Alkaline Phosphatase 129 U/L High 45-117 77 CBS W/Automated Diff 08/10/2017 White Blood Count 10.3 K/uL 3.1-10.7 77 Red Blood Count 3.76 M/uL Low 3.90-5.40 77 Hemoglobin 12.2 gm/dL 11.6-15.8 77 Hematocrit 36.4 % 36.0-46.1 77 Mean Cell Volume 96.8 fl 80.9-99.0 77 Mean Corpuscular HGB 32.4 pg 25.9-32.7 77 Mean Corpuscular HGB Conc 33.5 g/dL 30.8-34.3 77 Platelet Count 250 K/uL 150-400 77 Red Cell Distri Width SD 40.9 fl 3-47 77 Red Cell Distri Width %CV 12.0 % 11.7-14.4 77 Mean Platelet Volume 10.4 fL 8.9-12.4 77, 80 Neut# 7.47 K/uL High 1.8-7.0 77 Lymph # 1.56 K/uL 1.0-4.0 77 Fleming # 1.07 K/uL High 0.3-0.9 77 Eos # 0.15 K/uL 0.0-0.5 77 Baso # 0.02 K/uL 0.0-0.1 77 Xray 07/30/2017 Venous Doppler Lower <pending> Extremity Right Slide Review 07/29/2017 Slide Review . 81 CBS W/Automated Diff 07/29/2017 White Blood Count 9.5 K/uL 3.1-10.7 Red Blood Count 3.83 M/uL Low 3.90-5.40 Hemoglobin 12.4 gm/dL 11.6-15.8 Hematocrit 36.9 % 36.0-46.1 Mean Cell Volume 96.3 fl 80.9-99.0 Mean Corpuscular HGB 32.4 pg 25.9-32.7 Mean Corpuscular HGB Conc 33.6 g/dL 30.8-34.3 Platelet Count 258 K/uL 150-400 Red Cell Distri Width SD 41.3 fl 3-47 Red Cell Distri Width %CV 12.1 % 11.7-14.4 Mean Platelet Volume 10.6 fL 8.9-12.4 Neut% 75.4 % High 40.4-72.8 Lymph % 14.8 % Low 20.0-42.0 Fleming % 8.4 % 4.3-13.2 Eo% 1.1 % 0.0-6.6 Bas% 0.3 % 0.0-1.1 Neut# 7.15 K/uL High 1.8-7.0 Lymph # 1.40 K/uL 1.0-4.0 Fleming # 0.80 K/uL 0.3-0.9 Eos # 0.10 K/uL 0.0-0.5 Baso # 0.03 K/uL 0.0-0.1 Laboratory test 07/27/2017 Cea 686.7 ng/mL 82, 83 finding Xray 07/13/2017 CT, Abdomen & mets to liver Pelvis,W & W/O Contrast Protime 07/12/2017 Protime 13.0 seconds 12.0-14.4 84 Inr 1.0 0.9-1.1 84, 85 Anticoagulant Therapy? NO 84 Basic Metabolic Panel 07/12/2017 Glucose 103 mg/dL 74-106 84 BUN 15 mg/dL 7-18 84 Creatinine 0.7 mg/dL 0.6-1.3 84 Glom Filtration Rate, Estimate >60 mL/min >60 84 If >60 mL/min >60 84, 86 BUN/Creat 21.4 ratio 84 Sodium 143 mmol/L 136-145 84 Potassium 3.5 mmol/L 3.5-5.1 84 Chloride 108 mmol/L High 98-107 84 Carbon Dioxide 30 mmol/L 21-32 84 Anion Gap 5 mEq/L Low 8-16 84 Calcium 8.9 mg/dL 8.5-10.1 84 CBS W/Automated Diff 07/12/2017 White Blood Count 8.0 K/uL 3.1-10.7 84 Red Blood Count 3.91 M/uL 3.90-5.40 84 Hemoglobin 12.7 gm/dL 11.6-15.8 84 Hematocrit 37.9 % 36.0-46.1 84 Mean Cell Volume 96.9 fl 80.9-99.0 84 Mean Corpuscular HGB 32.5 pg 25.9-32.7 84 Mean Corpuscular HGB Conc 33.5 g/dL 30.8-34.3 84 Platelet Count 220 K/uL 150-400 84 Red Cell Distri Width SD 41.7 fl 3-47 84 Red Cell Distri Width %CV 12.0 % 11.7-14.4 84 Mean Platelet Volume 10.8 fL 8.9-12.4 84 Neut% 66.8 % 40.4-72.8 84 Lymph % 22.6 % 20.0-42.0 84 Fleming % 8.4 % 4.3-13.2 84 Eo% 2.0 % 0.0-6.6 84 Bas% 0.2 % 0.0-1.1 84 Neut# 5.36 K/uL 1.8-7.0 84 Lymph # 1.81 K/uL 1.0-4.0 84 Fleming # 0.67 K/uL 0.3-0.9 84 Eos # 0.16 K/uL 0.0-0.5 84 Baso # 0.02 K/uL 0.0-0.1 84 1 Z51.11 C20 D69.6 2 Note: Persistent reduction for 3 months or more in an eGFR <60 mL/min/1.73 m2 defines CKD. Patients with eGFR values >/=60 mL/min/1.73 m2 may also have CKD if evidence of persistent proteinuria is present. The original MDRD equation for estimated GFR is not valid for patients less than 18 years of age. Additional information may be found at [email or web address]. 3 STAT IZA SO DRY BOX TENDER- 4 Z51.11 C20 E78.5 5 Non-smokers ..... 0.0-3.0 ng/mL Smokers ......... 0.0-5.0 ng/mL THIS ASSAY IS NOT INTENDED A CANCER SCREENING TEST The concentration of CEA in a given specimen, determined with assays from different manufacturers, can vary due to differences in assay methods and reagent specificity. Values obtained from different assay methods cannot be used interchangeably. Method: [employer] [place] Chemiluminescent Immunoassay 6 Z51.11 C20 D69.6 E78.5 7 Note: Persistent reduction for 3 months or more in an eGFR <60 mL/min/1.73 m2 defines CKD. Patients with eGFR values >/=60 mL/min/1.73 m2 may also have CKD if evidence of persistent proteinuria is present. The original MDRD equation for estimated GFR is not valid for patients less than 18 years of age. Additional information may be found at [email or web address]. 8 Z51.11 C20 D69.6 C79.9 C78.00 E78.5 M25.562 9 STAT SHAKIRA SO DRY BOX TENDER 10 C20 D69.6 E78.5 C79.9 C78.00 11 Note: Persistent reduction for 3 months or more in an eGFR <60 mL/min/1.73 m2 defines CKD. Patients with eGFR values >/=60 mL/min/1.73 m2 may also have CKD if evidence of persistent proteinuria is present. The original MDRD equation for estimated GFR is not valid for patients less than 18 years of age. Additional information may be found at [email or web address]. 12 K62.5 C20 13 C20 14 Note: Persistent reduction for 3 months or more in an eGFR <60 mL/min/1.73 m2 defines CKD. Patients with eGFR values >/=60 mL/min/1.73 m2 may also have CKD if evidence of persistent proteinuria is present. The original MDRD equation for estimated GFR is not valid for patients less than 18 years of age. Additional information may be found at www.[email or web address]. 15 Z51.11 C20 E78.5 C79.9 C78.00 16 Note: Persistent reduction for 3 months or more in an eGFR <60 mL/min/1.73 m2 defines CKD. Patients with eGFR values >/=60 mL/min/1.73 m2 may also have CKD if evidence of persistent proteinuria is present. The original MDRD equation for estimated GFR is not valid for patients less than 18 years of age. Additional information may be found at [email or web address]. 17 C20 Z51.11 18 Note: Persistent reduction for 3 months or more in an eGFR <60 mL/min/1.73 m2 defines CKD. Patients with eGFR values >/=60 mL/min/1.73 m2 may also have CKD if evidence of persistent proteinuria is present. The original MDRD equation for estimated GFR is not valid for patients less than 18 years of age. Additional information may be found at [email or web address]. 19 C20 C18.9 G62.0 K12.31 C78.7 20 Note: Persistent reduction for 3 months or more in an eGFR <60 mL/min/1.73 m2 defines CKD. Patients with eGFR values >/=60 mL/min/1.73 m2 may also have CKD if evidence of persistent proteinuria is present. The original MDRD equation for estimated GFR is not valid for patients less than 18 years of age. Additional information may be found at [email or web address]. 21 E78.5 22 Reference Guidelines*: Desirable: ........... < 200 mg/dL Borderline High: ..... 200-239 mg/dL High: ................ >=240 mg/dL * The National Cholesterol Education Program (NCEP) 23 Reference Guidelines*: Normal: ............. < 150 mg/dL Borderline High: .... 150-199 mg/dL High: ............... 200-499 mg/dL Very High: .......... > 500 mg/dL * Source: National Cholesterol Education Program (NCEP) 24 Reference Guidelines*: Low HDL: ..... < 40 mg/dL Normal: ..... 40-60 mg/dL Desirable: ... > 60 mg/dL *The National Cholesterol Education Program(NCEP) 25 Reference Guidelines*: Optimal:........... <100 mg/dL Near Optimal....... 100-129 mg/dL Borderline High.... 130-159 mg/dL High............... 160-189 mg/dL Very High.......... >=190 mg/dL * Source: National Cholesterol Education Program (NCEP) 26 C20 Z51.11 I82.C12 27 Note: Persistent reduction for 3 months or more in an eGFR <60 mL/min/1.73 m2 defines CKD. Patients with eGFR values >/=60 mL/min/1.73 m2 may also have CKD if evidence of persistent proteinuria is present. The original MDRD equation for estimated GFR is not valid for patients less than 18 years of age. Additional information may be found at [email or web address]. 28 STAT IZA SO DRY BOX TENDER [phone] FAX 29 Note: Persistent reduction for 3 months or more in an eGFR <60 mL/min/1.73 m2 defines CKD. Patients with eGFR values >/=60 mL/min/1.73 m2 may also have CKD if evidence of persistent proteinuria is present. The original MDRD equation for estimated GFR is not valid for patients less than 18 years of age. Additional information may be found at www.[email or web address]. 30 K12.2 C20 31 C20 32 Note: Persistent reduction for 3 months or more in an eGFR <60 mL/min/1.73 m2 defines CKD. Patients with eGFR values >/=60 mL/min/1.73 m2 may also have CKD if evidence of persistent proteinuria is present. The original MDRD equation for estimated GFR is not valid for patients less than 18 years of age. Additional information may be found at www.[email or web address]. 33 Vitamin D deficiency has been defined by the [place] [employer] and an Endocrine Society practice guideline as a level of serum 25-OH vitamin D less than 20 ng/mL (1,2). The Endocrine Society went on to further define vitamin D insufficiency as a level between 21 and 29 ng/mL (2). 1. IOM ([place] [employer]). 2010. Dietary reference intakes for calcium and D. [place]: The National Academies Press. 2. Bruce MF, Harriett JAMES, Kerry JOHNS, et al. Evaluation, treatment, and prevention of vitamin D deficiency: an Endocrine Society clinical practice guideline. JCEM. 2010; 96(7):1911-30. Performed at: - [facility] [id number] Outsole Cementer: Breana Mclean MD, Phone: [phone] 34 Non-smokers ..... 0.0-3.0 ng/mL Smokers ......... 0.0-5.0 ng/mL THIS ASSAY IS NOT INTENDED A CANCER SCREENING TEST The concentration of CEA in a given specimen, determined with assays from different manufacturers, can vary due to differences in assay methods and reagent specificity. Values obtained from different assay methods cannot be used interchangeably. Method: Siem[employer] [place] Chemiluminescent Immunoassay 35 C20 C79.9 C78.00 E86.0 Z51.11 36 INFCE Result Units: copies/mL No BK DNA detected. The quantitative range of this assay is 200 to 10 million copies/mL. This test was developed and its performance characteristics determined by [facility]. It has not been cleared or approved by the Food and Drug Administration. The FDA has determined that such clearance or approval is not necessary. 37 Unable to calculate result since non-numeric result obtained for component test. Performed at: - [facility] [id number] Outsole Cementer: Ministerio Mayo MD, Phone: [phone] 38 Note: Persistent reduction for 3 months or more in an eGFR <60 mL/min/1.73 m2 defines CKD. Patients with eGFR values >/=60 mL/min/1.73 m2 may also have CKD if evidence of persistent proteinuria is present. The original MDRD equation for estimated GFR is not valid for patients less than 18 years of age. Additional information may be found at www.[email or web address]. 39 URINE, CLEAN CATCH 40 Instrument flagged sample for slide review. Less than 10% Bands seen, no other immature WBC's seen. RBC morphology essentially normal. Platelet estimate=NORMAL 41 10,000 - 50,000 CFU/mL 42 C20 C79.9 C78.00 C18.9 Z51.11 I82.C12 43 URINE, CLEAN CATCH 44 C20 Z51.11 E86.0 R35.0 45 STAT IZA SO PH [phone] FAX [phone] 46 Note: Persistent reduction for 3 months or more in an eGFR <60 mL/min/1.73 m2 defines CKD. Patients with eGFR values >/=60 mL/min/1.73 m2 may also have CKD if evidence of persistent proteinuria is present. The original MDRD equation for estimated GFR is not valid for patients less than 18 years of age. Additional information may be found at www.[email or web address]. 47 STREPTOCOCCUS PYOGENES (GRP A) 48 10,000 - 100,000 CFU/mL 49 PENICILLIN OR AMPICILLIN. 50 POSSIBLE UROGENITAL CONTAMINATION. 51 URINE, CLEAN CATCH 52 C20 C79.9 C78.00 53 Instrument flagged sample for slide review. Less than 10% Bands seen, no other immature WBC's seen. RBC morphology essentially normal. Platelet estimate=NORMAL 54 Note: Persistent reduction for 3 months or more in an eGFR <60 mL/min/1.73 m2 defines CKD. Patients with eGFR values >/=60 mL/min/1.73 m2 may also have CKD if evidence of persistent proteinuria is present. The original MDRD equation for estimated GFR is not valid for patients less than 18 years of age. Additional information may be found at www.[email or web address]. 55 C20 E86.0 Z51.11 56 Note: Persistent reduction for 3 months or more in an eGFR <60 mL/min/1.73 m2 defines CKD. Patients with eGFR values >/=60 mL/min/1.73 m2 may also have CKD if evidence of persistent proteinuria is present. The original MDRD equation for estimated GFR is not valid for patients less than 18 years of age. Additional information may be found at [email or web address]. 57 STAT IZA ABIDA DRY BOX TENDER-[phone] PH [phone] FAX 58 URINE, CLEAN CATCH 59 Instrument flagged sample for slide review. Less than 10% Bands seen, no other immature WBC's seen. RBC morphology essentially normal. Platelet estimate=NORMAL 60 C20 K12.31 61 Note: Persistent reduction for 3 months or more in an eGFR <60 mL/min/1.73 m2 defines CKD. Patients with eGFR values >/=60 mL/min/1.73 m2 may also have CKD if evidence of persistent proteinuria is present. The original MDRD equation for estimated GFR is not valid for patients less than 18 years of age. Additional information may be found at www.[email or web address]. 62 Non-smokers ..... 0.0-3.0 ng/mL Smokers ......... 0.0-5.0 ng/mL THIS ASSAY IS NOT INTENDED A CANCER SCREENING TEST The concentration of CEA in a given specimen, determined with assays from different manufacturers, can vary due to differences in assay methods and reagent specificity. Values obtained from different assay methods cannot be used interchangeably. Method: [employer] [place] Chemiluminescent Immunoassay 63 Instrument flagged sample for slide review. Less than 10% Bands seen, no other immature WBC's seen. RBC morphology essentially normal. Platelet estimate=SLIGHT INCREASE 64 DVT 65 Note: Persistent reduction for 3 months or more in an eGFR <60 mL/min/1.73 m2 defines CKD. Patients with eGFR values >/=60 mL/min/1.73 m2 may also have CKD if evidence of persistent proteinuria is present. The original MDRD equation for estimated GFR is not valid for patients less than 18 years of age. Additional information may be found at www.[email or web address]. 66 Is patient on heparin protocol? Y Is patient on anticoagulants? Heparin 67 C20 K12.31 68 Note: Persistent reduction for 3 months or more in an eGFR <60 mL/min/1.73 m2 defines CKD. Patients with eGFR values >/=60 mL/min/1.73 m2 may also have CKD if evidence of persistent proteinuria is present. The original MDRD equation for estimated GFR is not valid for patients less than 18 years of age. Additional information may be found at www.[email or web address]. 69 Non-smokers ..... 0.0-3.0 ng/mL Smokers ......... 0.0-5.0 ng/mL THIS ASSAY IS NOT INTENDED A CANCER SCREENING TEST The concentration of CEA in a given specimen, determined with assays from different manufacturers, can vary due to differences in assay methods and reagent specificity. Values obtained from different assay methods cannot be used interchangeably. Method: [employer] [place] Chemiluminescent Immunoassay 70 Z51.11 C20 71 Note: Persistent reduction for 3 months or more in an eGFR <60 mL/min/1.73 m2 defines CKD. Patients with eGFR values >/=60 mL/min/1.73 m2 may also have CKD if evidence of persistent proteinuria is present. The original MDRD equation for estimated GFR is not valid for patients less than 18 years of age. Additional information may be found at www.[email or web address]. 72 Instrument flagged sample for slide review. Less than 10% Bands seen, no other immature WBC's seen. RBC morphology essentially normal. Platelet estimate=NORMAL 73 PORT DRAW 74 C20 75 IZA SO [phone] FAX [phone] PORT DRAWPER MLM1 76 Note: Persistent reduction for 3 months or more in an eGFR <60 mL/min/1.73 m2 defines CKD. Patients with eGFR values >/=60 mL/min/1.73 m2 may also have CKD if evidence of persistent proteinuria is present. The original MDRD equation for estimated GFR is not valid for patients less than 18 years of age. Additional information may be found at www.[email or web address]. 77 C20 Z51.11 78 PORT DRAW STAT IZA SO [phone] FAX 79 Note: Persistent reduction for 3 months or more in an eGFR <60 mL/min/1.73 m2 defines CKD. Patients with eGFR values >/=60 mL/min/1.73 m2 may also have CKD if evidence of persistent proteinuria is present. The original MDRD equation for estimated GFR is not valid for patients less than 18 years of age. Additional information may be found at www.[email or web address]. 80 08/10/17 1602: NEUT% previously reported as: 72.7 % Amended result called to: [] - 08/10/17 at 1602 08/10/17 1602: LYMPH % previously reported as: 15.2 L % Amended result called to: [] - 08/10/17 at 1602 08/10/17 1602: MONO % previously reported as: 10.4 % Amended result called to: [] - 08/10/17 at 1602 08/10/17 1602: EO% previously reported as: 1.5 % Amended result called to: [] - 08/10/17 at 1602 08/10/17 1602: BAS% previously reported as: 0.2 % Amended result called to: [] - 08/10/17 at 1602 81 Instrument flagged sample for slide review. Less than 10% Bands seen, no other immature WBC's seen. RBC morphology essentially normal. Platelet estimate=NORMAL 82 C20 83 Non-smokers ..... 0.0-3.0 ng/mL Smokers ......... 0.0-5.0 ng/mL THIS ASSAY IS NOT INTENDED A CANCER SCREENING TEST The concentration of CEA in a given specimen, determined with assays from different manufacturers, can vary due to differences in assay methods and reagent specificity. Values obtained from different assay methods cannot be used interchangeably. Method: [employer] [place] Chemiluminescent Immunoassay 84 E89.0, R53.83 85 THERAPEUTIC INR RANGE: 2.0 - 3.0 DVT, Pulmonary embolus, prophylaxis against venous thrombosis or systemic embolization in high risk patients. 2.5 - 3.5 Mechanical heart valves 86 Note: Persistent reduction for 3 months or more in an eGFR <60 mL/min/1.73 m2 defines CKD. Patients with eGFR values >/=60 mL/min/1.73 m2 may also have CKD if evidence of persistent proteinuria is present. The original MDRD equation for estimated GFR is not valid for patients less than 18 years of age. Additional information may be found at [email or web address]. Procedures Date CPT Code Description Status 01/10/2018 82581 Remove venous access, +subq port or pump, central or Completed peripheral 01/10/2018 12501 Insertion Tunneled Cent Venous Cathr W Subcut Port 5 Completed Yrs Or Oldr 10/04/2017 49748 EKG Interpretation And Report Only Completed 08/03/2017 15608 Insertion Tunneled Cent Venous Cathr W Subcut Port 5 Completed Yrs Or Oldr 07/16/2017 06698 Colonoscopy With Biopsy Completed 04/23/2010 54771 Stress Test Interpre And Report Only Completed 04/23/2010 92413 Stress Test Physician Super Only Completed 05/19/2007 78781 Intraop Neurophysiology Testing Completed 05/19/2007 41696 Cranial Nerve Supplied Muscle Completed 05/19/2007 05290 Partial Thyroid Completed Axzdsnmpc-Dauqwxejej-B/Wout-Isthmusectomy Encounters Type Date Location Provider CPT E/M Dx Office Visit 03/31/2018 10:30a Orthopaedic Office IGNACIO Storm 47898 Z96.652 M25.562 Office Visit 03/23/2018 8:30[place] [address] C20 Z51.11 G62.0 M25.562 Office Visit 03/16/2018 12:00p [place] [address] C20 G62.0 Z86.718 Office Visit 03/09/2018 8:30[place] [address] Z51.11 C20 G62.0 Office Visit 03/07/2018 11:30[place] [address] K62.5 C20 Office Visit 02/23/2018 8:30[place] [address] M25.531 Z51.11 C20 Z86.718 Office Visit 02/09/2018 8:30[place] [address] Z51.11 C20 D69.6 J02.9 Z86.718 Office Visit 01/26/2018 8:30[place] [address] Z51.11 C20 Office Visit 01/20/2018 2:15p Surgical Office Sanya Dukes 17415 C20 Sid Office Visit 01/19/2018 1:15p Family Medicine IGNACIO Leal 26813 F41.9 G47.9 I10 E78.5 F43.21 H93.13 Office Visit 01/12/2018 8:30[place] [address] Z51.11 C20 I82.C12 G62.0 Office Visit 01/04/2018 8:00[place] [address] Z51.11 T82.598D C20 I82.C12 G62.0 Office Visit 12/27/2017 1:00[place] [address] K12.2 C20 I82.C12 Office Visit 12/23/2017 2:00p Infusion Center Iza So, BHUPINDER 7[address]26 K12.2 C20 I82.C12 Office Visit 12/15/2017 8:00a Infusion Center Iza So, BHUPINDER 82959 Z51.11 C20 I82.C12 G62.0 Office Visit 12/14/2017 11:00[place] [address] C20 I82.C12 Office Visit 12/01/2017 9:00a Infusion Center Iza So, BHUPINDER 80594 Z51.11 C20 I82.C12 G62.0 Office Visit 11/29/2017 9:00a Infusion Center Iza So, BHUPINDER 55466 Z51.11 C20 I82.C12 N39.0 I26.99 Office Visit 11/23/2017 12:30p Infusion Center Iza So, BHUPINDER 07186 N39.0 C20 I82.C12 I26.99 G62.0 Office Visit 11/17/2017 8:30[place] [address] C20 I82.C12 I26.99 Office Visit 11/10/2017 10:30a Infusion Center Iza So, BHUPINDER 22046 Z51.11 C20 I82.C12 I82.B12 I82.A12 I26.99 T82.868A G62.0 Office Visit 10/26/2017 9:00a Infusion Center Iza So, BHUPINDER 74067 Z51.11 C20 I82.C12 I82.B12 I82.A12 I26.99 T82.868A Office Visit 10/11/2017 10:45a [place] [address] C20 I82.C12 I82.B12 I82.A12 I26.99 Office Visit 09/10/2017 12:45p [place] [address] C20 Office Visit 08/30/2017 11:45a [place] [address] C20 Office Visit 08/23/2017 3:00p Infusion Center Iza So, BHUPINDER 53578 K12.30 C20 I80.9 E86.0 Office Visit 08/17/2017 12:30p Infusion Center Iza So, BHUPINDER 51346 I80.9 C20 Office Visit 08/13/2017 1:00p Infusion Center Iza So, BHUPINDER 19286 E86.0 I80.9 J01.90 C20 Office Visit 08/10/2017 12:30p Infusion Center Iza So, BHUPINDER 60462 I80.9 R11.0 C20 J01.90 Office Visit 07/30/2017 12:00p [place] [address] C20 I82.401 Office Visit 07/22/2017 3:30p Surgical Office Sanya Dukes, 07546 C20 M.DLaura K57.30 Office Visit 07/08/2017 3:45p Surgical Office Sanya Dukes, 51728 R10.9 M.DLaura K62.5 Office Visit 04/15/2017 10:15a Orthopaedic Office IGNACIO Storm 86665 G56.03 Office Visit 06/13/2007 4:15p Operating Room Michael Juarez M.D. 21393 241.0 Office Visit 05/25/2007 8:00a Operating Room Michael Juarez M.D. 41263 241.1 Office Visit 05/13/2007 8:15a Operating Room Michael Juarez M.D. 27837 246.0 Office Visit 03/11/2007 8:15a Operating Room Michael Juarez M.D. 43472 246.0 Plan of Care Future Appointment(s):05/04/2018 8:00 am - Infusion Chair 1 at Infusion Ejhmdl8404/20/2018 - Iza So, NPZ51.11 Encounter for antineoplastic chemotherapyComments:No contraindication to treatment.C20 Malignant neoplasm of rectumComments:C12 mFOLFOX6 + Bevacizumab today. Oxaliplatin was discontinued for C11 due to worsening peripheral neuropathy. Fluorouracil per previous dosing due to prior toxicity (PPE). Full dose bevacizumab. These are high risk , highly monitored agents.Pt's CEA has declined from 1129.3 on 12/14/17 to 43.5 on 04/06. Ongoing diagnosis and treatment education.Follow up:RTC in 2 days for pump dc. RTC in 2 weeks for evaluation for treatment. Pt will see Dr. Hogue prior to this treatment.G62.0 Drug-induced polyneuropathyComments:Stable. Continue gabapentin per previous njviuuC15.6 HypokalemiaComments:40 mEq Potassium Chloride ER po administered in infusion suite.E83.42 HypomagnesemiaComments:2 grams magnesium sulfate IV today.
[2018-05-21 21:55] VITALS: BP 149/93
--- OUTSIDE RECORDS SUMMARY | 2018-05-21 21:55 | XMS REPORT ---
:1955 External Reference #:[id number] Author Organization [facility] Address [address], [address] [place] [address] Phone [phone] Care Team Providers Name Role Phone Neyda Lemos PA Care Team Information Dish Cloth Inspector Unavailable Neyda Lemos PA Primary Care Physician Unavailable Payers Type Date Identification Numbers Payment Provider Subscriber Commercial Effective: Policy Number: [employer] Medicaid Afsahn Coleman 2017 [id number] PayID: [id number] [address] [place] [address] Problems Date Description Provider Status Onset: 04/15/2017 [...] Take Two Rowena 2018 ps Capsules By Bj Hogue Three DO Times A Day Colace [...] Christopher e/Trimethoprim 07/30/2017 g 0 H. trista Clark M.D. b s Venlafaxine HCL - Hx [...] kg/m2 BSA (Body Surface Area) 1.90 m2 Kathryn body weight in kilograms 56 O2 % [...] kg/m2 BSA (Body Surface Area) 1.88 m2 Kathryn body weight in kilograms 56 O2 % [...] kg/m2 BSA (Body Surface Area) 1.96 m2 Kathryn body weight in kilograms 58 O2 % BldC Oximetry 95 % 07/08/2017 BP Systolic 126 mmHg BP Diastolic 88 mmHg Height 64 inches 5'4" Weight 190.00 lb BMI (Body Mass Index) 32.6 kg/m2 BSA (Body Surface Area) 1.91 m2 Kathryn body weight in kilograms 54 04/15/2017 BP Systolic Sitting Right Arm 135 mmHg BP Diastolic Sitting Right Arm 84 mmHg Heart Rate 76 /min Height 64 inches 5'4" Weight 190.00 lb BMI (Body Mass Index) 32.6 kg/m2 BSA (Body Surface Area) 1.91 m2 Kathryn body weight in kilograms 54 Results Test [...] 1 Lymph % 20.6 % 20.0-42.0 1 [place] % 13.6 % High 4.3-13.2 1 Eo% 0.8 % 0.0-6.6 1 Bas% 0.4 % 0.0-1.1 1 Neut# 3.43 K/uL 1.8-7.0 1 Lymph # 1.09 K/uL 1.0-4.0 1 [place] # 0.72 K/uL 0.3-0.9 1 Eos # [...] 6 Lymph % 29.0 % 20.0-42.0 6 [place] % 18.6 % High 4.3-13.2 6 Eo% 0.9 % 0.0-6.6 6 Bas% 0.6 % 0.0-1.1 6 Neut# 1.76 K/uL Low 1.8-7.0 6 Lymph # 1.00 K/uL 1.0-4.0 6 [place] # 0.64 K/uL 0.3-0.9 6 Eos # [...] Lymph % 19.3 % Low 20.0-42.0 10 [place] % 16.1 % High 4.3-13.2 10 Eo% 0.8 % 0.0-6.6 10 Bas% 0.3 % 0.0-1.1 10 Neut# 2.53 K/uL 1.8-7.0 10 Lymph # 0.77 K/uL Low 1.0-4.0 10 [place] # 0.64 K/uL 0.3-0.9 10 Eos # [...] 13 Lymph % 25.7 % 20.0-42.0 13 [place] % 11.8 % 4.3-13.2 13 Eo% 1.0 % 0.0-6.6 13 Bas% 0.5 % 0.0-1.1 13 Neut# 2.49 K/uL 1.8-7.0 13 Lymph # 1.05 K/uL 1.0-4.0 13 [place] # 0.48 K/uL 0.3-0.9 13 Eos # [...] 15 Lymph % 21.9 % 20.0-42.0 15 [place] % 15.9 % High 4.3-13.2 15 Eo% 1.6 % 0.0-6.6 15 Bas% 0.2 % 0.0-1.1 15 Neut# 2.61 K/uL 1.8-7.0 15 Lymph # 0.95 K/uL Low 1.0-4.0 15 [place] # 0.69 K/uL 0.3-0.9 15 Eos # [...] 17 Lymph % 24.8 % 20.0-42.0 17 [place] % 14.2 % High 4.3-13.2 17 Eo% 1.2 % 0.0-6.6 17 Bas% 0.2 % 0.0-1.1 17 Neut# 2.53 K/uL 1.8-7.0 17 Lymph # 1.05 K/uL 1.0-4.0 17 [place] # 0.60 K/uL 0.3-0.9 17 Eos # [...] 19 Lymph % 20.9 % 20.0-42.0 19 [place] % 13.7 % High 4.3-13.2 19 Eo% 1.3 % 0.0-6.6 19 Bas% 0.2 % 0.0-1.1 19 Neut# 3.03 K/uL 1.8-7.0 19 Lymph # 0.99 K/uL Low 1.0-4.0 19 [place] # 0.65 K/uL 0.3-0.9 19 Eos # [...] Lymph % 15.1 % Low 20.0-42.0 26 [place] % 11.9 % 4.3-13.2 26 Eo% 0.7 % 0.0-6.6 26 Bas% 0.4 % 0.0-1.1 26 Neut# 4.00 K/uL 1.8-7.0 26 Lymph # 0.84 K/uL Low 1.0-4.0 26 [place] # 0.66 K/uL 0.3-0.9 26 Eos # [...] 26 Lymph % 22.5 % 20.0-42.0 26 [place] % 17.4 % High 4.3-13.2 26 Eo% 0.5 % 0.0-6.6 26 Bas% 0.5 % 0.0-1.1 26 Neut# 2.20 K/uL 1.8-7.0 26 Lymph # 0.84 K/uL Low 1.0-4.0 26 [place] # 0.65 K/uL 0.3-0.9 26 Eos # [...] Lymph % 19.6 % Low 20.0-42.0 30 [place] % 13.8 % High 4.3-13.2 30 Eo% 1.4 % 0.0-6.6 30 Bas% 0.3 % 0.0-1.1 30 Neut# 4.05 K/uL 1.8-7.0 30 Lymph # 1.22 K/uL 1.0-4.0 30 [place] # 0.86 K/uL 0.3-0.9 30 Eos # [...] Lymph % 15.7 % Low 20.0-42.0 31 [place] % 13.1 % 4.3-13.2 31 Eo% 0.7 % 0.0-6.6 31 Bas% 0.4 % 0.0-1.1 31 Neut# 3.75 K/uL 1.8-7.0 31 Lymph # 0.84 K/uL Low 1.0-4.0 31 [place] # 0.70 K/uL 0.3-0.9 31 Eos # [...] Lymph % 14.7 % Low 20.0-42.0 35 [place] % 10.1 % 4.3-13.2 35 Eo% 0.3 % 0.0-6.6 35 Bas% 0.4 % 0.0-1.1 35 Neut# 5.89 K/uL 1.8-7.0 35 Lymph # 1.16 K/uL 1.0-4.0 35 [place] # 0.80 K/uL 0.3-0.9 35 Eos # [...] Ketone NEGATIVE mg/dL Negative 35 Urine Specific [place] >=1.030 1.010-1.030 35 Urine Blood SMALL Negative [...] Ketone NEGATIVE mg/dL Negative 42 Urine Specific [place] >=1.030 1.010-1.030 42 Urine Blood TRACE Negative [...] Lymph % 11.7 % Low 20.0-42.0 44 [place] % 12.9 % 4.3-13.2 44 Eo% 0.7 % 0.0-6.6 44 Bas% 0.2 % 0.0-1.1 44 Neut# 6.06 K/uL 1.8-7.0 44 Lymph # 0.95 K/uL Low 1.0-4.0 44 [place] # 1.05 K/uL High 0.3-0.9 44 Eos [...] Ketone NEGATIVE mg/dL Negative 44 Urine Specific [place] 1.025 1.010-1.030 44 Urine Blood MODERATE Negative [...] Lymph % 11.0 % Low 20.0-42.0 52 [place] % 10.3 % 4.3-13.2 52 Eo% 0.3 % 0.0-6.6 52 Bas% 0.4 % 0.0-1.1 52 Neut# 7.28 K/uL High 1.8-7.0 52 Lymph # 1.03 K/uL 1.0-4.0 52 [place] # 0.96 K/uL High 0.3-0.9 52 Eos [...] Lymph % 8.6 % Low 20.0-42.0 55 [place] % 10.5 % 4.3-13.2 55 Eo% 0.6 % 0.0-6.6 55 Bas% 0.2 % 0.0-1.1 55 Neut# 7.65 K/uL High 1.8-7.0 55 Lymph # 0.82 K/uL Low 1.0-4.0 55 [place] # 1.00 K/uL High 0.3-0.9 55 Eos [...] Ketone NEGATIVE mg/dL Negative 55 Urine Specific [place] 1.020 1.010-1.030 55 Urine Blood TRACE Negative [...] Lymph % 10.5 % Low 20.0-42.0 60 [place] % 10.5 % 4.3-13.2 60 Eo% 0.9 % 0.0-6.6 60 Bas% 0.3 % 0.0-1.1 60 Neut# 8.86 K/uL High 1.8-7.0 60 Lymph # 1.19 K/uL 1.0-4.0 60 [place] # 1.19 K/uL High 0.3-0.9 60 Eos [...] Lymph % 9.1 % Low 20.0-42.0 64 [place] % 10.6 % 4.3-13.2 64 Eo% 1.5 % 0.0-6.6 64 Bas% 0.2 % 0.0-1.1 64 Neut# 6.40 K/uL 1.8-7.0 64 Lymph # 0.74 K/uL Low 1.0-4.0 64 [place] # 0.86 K/uL 0.3-0.9 64 Eos # [...] Lymph % 12.9 % Low 20.0-42.0 67 [place] % 9.8 % 4.3-13.2 67 Eo% 1.3 % 0.0-6.6 67 Bas% 0.3 % 0.0-1.1 67 Neut# 6.61 K/uL 1.8-7.0 67 Lymph # 1.13 K/uL 1.0-4.0 67 [place] # 0.86 K/uL 0.3-0.9 67 Eos # [...] Lymph % 10.9 % Low 20.0-42.0 70 [place] % 9.5 % 4.3-13.2 70 Eo% 2.5 % 0.0-6.6 70 Bas% 0.2 % 0.0-1.1 70 Neut# 7.39 K/uL High 1.8-7.0 70 Lymph # 1.05 K/uL 1.0-4.0 70 [place] # 0.91 K/uL High 0.3-0.9 70 Eos [...] Lymph % 13.8 % Low 20.0-42.0 74 [place] % 8.6 % 4.3-13.2 74 Eo% 2.1 % 0.0-6.6 74 Bas% 0.2 % 0.0-1.1 74 Neut# 6.46 K/uL 1.8-7.0 74 Lymph # 1.18 K/uL 1.0-4.0 74 [place] # 0.74 K/uL 0.3-0.9 74 Eos # [...] 77 Lymph # 1.56 K/uL 1.0-4.0 77 [place] # 1.07 K/uL High 0.3-0.9 77 Eos [...] 40.4-72.8 Lymph % 14.8 % Low 20.0-42.0 [place] % 8.4 % 4.3-13.2 Eo% 1.1 % 0.0-6.6 Bas% 0.3 % 0.0-1.1 Neut# 7.15 K/uL High 1.8-7.0 Lymph # 1.40 K/uL 1.0-4.0 [place] # 0.80 K/uL 0.3-0.9 Eos # 0.10 [...] 84 Lymph % 22.6 % 20.0-42.0 84 [place] % 8.4 % 4.3-13.2 84 Eo% 2.0 % 0.0-6.6 84 Bas% 0.2 % 0.0-1.1 84 Neut# 5.36 K/uL 1.8-7.0 84 Lymph # 1.81 K/uL 1.0-4.0 84 [place] # 0.67 K/uL 0.3-0.9 84 Eos # [...] found at www.kdoqi.org. 3 STAT IZA SO GROUNDSKEEPER SUPERVISOR- 4 Z51.11 C20 E78.5 5 Non-smokers ..... 0.0-3.0 ng/mL Smokers ......... 0.0-5.0 ng/mL THIS ASSAY IS NOT INTENDED A CANCER SCREENING TEST The concentration of CEA in a given specimen, determined with assays from different manufacturers, can vary due to differences in assay methods and reagent specificity. Values obtained from different assay methods cannot be used interchangeably. Method: Siemens [employer] Vilonia Chemiluminescent Immunoassay 6 Z51.11 C20 D69.6 E78.5 [...] C78.00 E78.5 M25.562 9 STAT SHAKIRA SO GROUNDSKEEPER SUPERVISOR 10 C20 D69.6 E78.5 C79.9 C78.00 11 [...] found at www.kdoqi.org. 28 STAT IZA SO GROUNDSKEEPER SUPERVISOR [phone] FAX 29 Note: Persistent reduction for 3 [...] D deficiency has been defined by the [place] of [employer] and an Endocrine Society practice guideline as a level of serum 25-OH vitamin D less than 20 ng/mL (1,2). The Endocrine Society went on to further define vitamin D insufficiency as a level between 21 and 29 ng/mL (2). 1. IOM ([place] of Medicine). 2010. Dietary reference intakes for calcium and D. [place]: The National Academies Press. 2. Bruce MF, Harriett JAMES, Kerry JOHNS, et al. Evaluation, treatment, and prevention of vitamin D deficiency: an Endocrine Society clinical practice guideline. JCEM. 2010; 96(7):1911-30. Performed at: - [facility] [id number] [address] Advocate: Breana Mclean MD, Phone: [phone] 34 Non-smokers ..... 0.0-3.0 ng/mL Smokers ......... 0.0-5.0 ng/mL THIS ASSAY IS NOT INTENDED A CANCER SCREENING TEST The concentration of CEA in a given specimen, determined with assays from different manufacturers, can vary due to differences in assay methods and reagent specificity. Values obtained from different assay methods cannot be used interchangeably. Method: Siemens [employer] Vilonia Chemiluminescent Immunoassay 35 C20 C79.9 C78.00 E86.0 Z51.11 36 INFCE Result Units: copies/mL No BK DNA detected. The quantitative range of this assay is 200 to 10 million copies/mL. This test was developed and its performance characteristics determined by [employer]. It has not been cleared or approved by the Food and Drug Administration. The FDA has determined that such clearance or approval is not necessary. 37 Unable to calculate result since non-numeric result obtained for component test. Performed at: - [facility] [id number] [address] Advocate: Ministerio Mayo MD, Phone: [phone] Note: Persistent reduction for 3 months [...] E86.0 R35.0 45 STAT IZA SO PH [phone] FAX [phone] Note: Persistent reduction for 3 months [...] found at www.kdoqi.org. 57 STAT IZA ABIDA GROUNDSKEEPER SUPERVISOR-[phone] PH [phone] FAX 58 URINE, CLEAN CATCH 59 Instrument [...] assay methods cannot be used interchangeably. Method: [employer] Vilonia Chemiluminescent Immunoassay 63 Instrument flagged sample for [...] methods cannot be used interchangeably. Method: Siemens [employer] Vilonia Chemiluminescent Immunoassay 70 Z51.11 C20 71 Note: [...] PORT DRAW 74 C20 75 IZA SO [phone] FAX [phone] PORT DRAWPER MLM1 76 Note: Persistent reduction [...] Z51.11 78 PORT DRAW STAT IZA SO [phone] FAX 79 Note: Persistent reduction for 3 [...] methods cannot be used interchangeably. Method: Siemens [employer] Vilonia Chemiluminescent Immunoassay 84 E89.0, R53.83 85 THERAPEUTIC [...] Procedures Date CPT Code Description Status 01/10/2018 77750 Remove venous access, +subq port or pump, central or Completed peripheral 01/10/2018 74504 Insertion Tunneled Cent Venous Cathr W Subcut Port 5 Completed Yrs Or Oldr 10/04/2017 35042 EKG Interpretation And Report Only Completed 08/03/2017 72901 Insertion Tunneled Cent Venous Cathr W Subcut Port 5 Completed Yrs Or Oldr 07/16/2017 46315 Colonoscopy With Biopsy Completed 04/23/2010 13399 Stress Test Interpre And Report Only Completed 04/23/2010 55413 Stress Test Physician Super Only Completed 05/19/2007 47563 Intraop Neurophysiology Testing Completed 05/19/2007 17727 Cranial Nerve Supplied Muscle Completed 05/19/2007 68160 Partial Thyroid Completed Orvhwwvtz-Hjeqrscxok-B/Wout-Isthmusectomy Encounters Type Date Location Provider CPT E/M Dx Office Visit 03/31/2018 10:30a Orthopaedic Office IGNACIO Storm 48361 Z96.652 M25.562 Office Visit 03/23/2018 8:30[place] [address] C20 Z51.11 G62.0 M25.562 Office Visit 03/16/2018 12:00p Oncology Office Rowena HogueDO [address] C20 G62.0 Z86.718 Office Visit 03/09/2018 8:30[place] [address] Z51.11 C20 G62.0 Office Visit 03/07/2018 11:30[place] [address] K62.5 C20 Office Visit 02/23/2018 8:30[place] [address] M25.531 Z51.11 C20 Z86.718 Office Visit 02/09/2018 8:30[place] [address] Z51.11 C20 D69.6 J02.9 Z86.718 Office Visit 01/26/2018 8:30[place] [address] Z51.11 C20 Office Visit 01/20/2018 2:15p Surgical Office Sanya Dukes 54985 C20 Sid Office Visit 01/19/2018 1:15p Family Medicine IGNACIO Leal 98324 F41.9 G47.9 I10 E78.5 F43.21 H93.13 Office Visit 01/12/2018 8:30[place] [address] Z51.11 C20 I82.C12 G62.0 Office Visit 01/04/2018 8:00[place] [address] Z51.11 T82.598D C20 I82.C12 G62.0 Office Visit 12/27/2017 1:00[place] [address] K12.2 C20 I82.C12 Office Visit 12/23/2017 2:00p Infusion Center Iza So, BHUPINDER [address]1373 K12.2 C20 I82.C12 Office Visit 12/15/2017 8:00a Infusion Center Iza So, BHUPINDER 73709 Z51.11 C20 I82.C12 G62.0 Office Visit 12/14/2017 11:00[place] [address] C20 I82.C12 Office Visit 12/01/2017 9:00a Infusion Center Iza So, BHUPINDER 22668 Z51.11 C20 I82.C12 G62.0 Office Visit 11/29/2017 9:00a Infusion Center Iza So, BHUPINDER 02349 Z51.11 C20 I82.C12 N39.0 I26.99 Office Visit 11/23/2017 12:30p Infusion Center Iza So, BHUPINDER 91419 N39.0 C20 I82.C12 I26.99 G62.0 Office Visit 11/17/2017 8:30[place] [address] C20 I82.C12 I26.99 Office Visit 11/10/2017 10:30a Infusion Center Iza So, BHUPINDER 03769 Z51.11 C20 I82.C12 I82.B12 I82.A12 I26.99 T82.868A G62.0 Office Visit 10/26/2017 9:00a Infusion Center Iza So, [place]UPINDER 03585 Z51.11 C20 I82.C12 I82.B12 I82.A12 I26.99 T82.868A Office Visit 10/11/2017 10:45a [place] [address] C20 I82.C12 I82.B12 I82.A12 I26.99 Office Visit 09/10/2017 12:45p [place] [address] C20 Office Visit 08/30/2017 11:45a [place] [address] C20 Office Visit 08/23/2017 3:00p Infusion Center Iza So, BHUPINDER 23502 K12.30 C20 I80.9 E86.0 Office Visit 08/17/2017 12:30p Infusion Center Iza So, BHUPINDER 67072 I80.9 C20 Office Visit 08/13/2017 1:00p Infusion Center Iza So, BHUPINDER 58003 E86.0 I80.9 J01.90 C20 Office Visit 08/10/2017 12:30p Infusion Center Iza So, BHUPINDER 19671 I80.9 R11.0 C20 J01.90 Office Visit 07/30/2017 12:00p Oncology Office Rowena HogueDO 2[address] C20 I82.401 Office Visit 07/22/2017 3:30p Surgical Office Sanya Dukes, 305[address] C20 M.DLaura K57.30 Office Visit 07/08/2017 3:45p Surgical Office Sanya Dukes, 60723 R10.9 M.Lizzeth K62.5 Office Visit 04/15/2017 10:15a Orthopaedic Office IGNACIO Storm 90140 G56.03 Office Visit 06/13/2007 4:15p Operating Room Michael Juarez M.D. 57004 241.0 Office Visit 05/25/2007 8:00a Operating Room Michael Juarez M.D. 38476 241.1 Office Visit 05/13/2007 8:15a Operating Room Michael Juarez M.D. 70202 246.0 Office Visit 03/11/2007 8:15a Operating Room Michael Juarez M.D. 20854 246.0 Plan of Care Future Appointment(s):05/04/2018 8:00 am - Infusion Chair 1 at [facility]
[2018-05-21] MEDS ORDERED: HYDROcodone/ACETAMIN 5-325 MG* 1 TAB PO ONE (22:03)
--- NOTE | 2018-05-21 22:15 | UC ---
General HPI - HPI Summary HPI Summary: Patient states that at 7:30p she slipped and fell, hitting the right side of her abdomen as it fell over her right knee. She states she has pain along right ribcage and it hurts to take deep breaths but that she is currently not short of breath. She has history of metastasic colon cancer, currently on chemotherapy and prophylactic lovenox. - History of Current Complaint Chief Complaint: UCTrauma Stated Complaint: RIGHT SIDE RIB PAIN S/P FALL Time Seen by Provider: 05/21/18 21:55 Hx Obtained From: Patient Hx Last Menstrual Period: "Long times ago." Onset/Duration: Sudden Onset, Lasting Hours Onset Severity: Severe Current Severity: Severe Pain Intensity: 9 Associated Signs & Symptoms: Positive: Anticoagulation Therapy - Allergy/Home Medications Allergies/Adverse Reactions: Allergies Allergy/AdvReac Type Severity Reaction Status Date / Time azithromycin Allergy Vomiting Verified 05/21/18 21:49 erythromycin base Allergy GI Upset Verified 05/21/18 21:49 Penicillins Allergy Rash Verified 05/21/18 21:49 tetracycline Allergy GI Upset Verified 05/21/18 21:49 Home Medications: Home Medications Amitriptyline TAB* [Elavil TAB*] 20 mg PO BEDTIME 05/21/18 [History Confirmed ] Enoxaparin(*) [Lovenox(*)] 60 mg SUBCUT Q24HR 05/21/18 [History Confirmed ] Levothyroxine TAB* [Synthroid TAB*] 137 mcg PO DAILY 05/21/18 [History Confirmed 05/21/18] Vitamin B Complex CAP* [B Complex CAP*] 1 cap PO DAILY 05/21/18 [History Confirmed 05/21/18] PMH/Surg Hx/FS Hx/Imm Hx Endocrine History: Hypothyroidism, Dyslipidemia Cardiovascular History: Hypertension Psychological History: Depression Cancer History: Colorectal Cancer Other History Of: Anticoagulant Therapy Negative For: HIV, Hepatitis B, Hepatitis C - Surgical History Surgical History: Yes Surgery Procedure, Year, and Place: LEFT KNEE REPLACEMENT, LEFT and right THYROIDECTOMY now Right - Family History Known Family History: Positive: None Negative: Cardiac Disease, Hypertension, Diabetes - Social History Alcohol Use: None Substance Use Type: None Smoking Status (MU): Former Smoker Have You Smoked in the Last Year: No When Did the Patient Quit Smoking/Using Tobacco: 10/06/12 - Immunization History Most Recent Influenza Vaccination: 0377-7750 Review of Systems Constitutional: Negative Musculoskeletal: Arthralgia, Myalgia Is Patient Immunocompromised?: Yes All Other Systems Reviewed And Are Negative: Yes Physical Exam Triage Information Reviewed: Yes Appearance: Pain Distress, Obese Vital Signs: Initial Vital Signs Temp 97.3 F 05/21/18 21:51 Pulse 87 05/21/18 21:51 Resp 16 05/21/18 21:51 BP 149/93 05/21/18 21:51 Pulse Ox 98 05/21/18 21:51 Vital Signs Reviewed: Yes Eyes: Positive: Conjunctiva Clear ENT: Positive: Hearing grossly normal Neck: Positive: Supple Respiratory: Positive: Chest non-tender, Lungs clear, Normal breath sounds, No respiratory distress Cardiovascular: Positive: RRR, No Murmur, Pulses Normal, Brisk Capillary Refill Abdomen Description: Positive: No Organomegaly, Soft, Other: - tender along lower right ribcage. No bruising of skin, no echymosis. No deformity, flailing or asymmetry Bowel Sounds: Positive: Present Musculoskeletal: Positive: Strength Intact, ROM Intact, No Edema Course/Dx - Course Course Of Treatment: xray of right ribcage shows no apparent displacement of ribs. Obscured due to calcifications and overlying intestinal loops. Pain control with norco as needed. - Differential Dx - Multi-Symptom Provider Diagnoses: Blunt ribcage trauma Discharge - Sign-Out/Discharge Documenting (check all that apply): Patient Departure All imaging exams completed and their final reports reviewed: No - Discharge Plan Condition: Stable Disposition: HOME Prescriptions: Hydrocodone/Acetaminophen [[place] 5-325 Tablet] 1 each PO QID PRN 3 Days #12 tablet MDD 4 PRN Reason: Pain Referrals: Evette Lomeli MD [Primary Care Provider] - - Billing Disposition and Condition Condition: STABLE Disposition: Home
--- NOTE | 2018-05-22 12:03 | RAD ---
INDICATION: Right rib pain after a fall COMPARISON: Similar examination dated October 19, 2011 TECHNIQUE: 4 views of the right ribs were obtained. FINDINGS: An external metallic marker is noted overlying the lateral right lower ribs. No fracture or significant focal osseous abnormality is seen. No pneumothorax is apparent. Limited views demonstrate grossly clear lungs. There is been interval placement of a right subclavian vein Mediport with the tip terminating in the superior vena cava. IMPRESSION: No radiographically apparent displaced rib fracture or pneumothorax. If the patient's symptoms persist, follow-up imaging is recommended. R0
--- NOTE | 2018-05-22 13:15 | UC ---
Discharge - Sign-Out/Discharge Documenting (check all that apply): Post-Discharge Follow Up All imaging exams completed and their final reports reviewed: Yes - Discharge Plan Condition: Stable Disposition: HOME Prescriptions: Hydrocodone/Acetaminophen [[place] 5-325 Tablet] 1 each PO QID PRN 3 Days #12 tablet MDD 4 PRN Reason: Pain Patient Education Materials: Hydrocodone/Acetaminophen (By mouth), Blunt Abdominal Injury (ED) Referrals: Evette Lomeli MD [Primary Care Provider] - Additional Instructions: There is no apparent displacement of your ribs in the xray. The xray is somewhat obscured at the site of pain and the final results will be discussed with you tomorrow. Please take the medication for pain as prescribed. If the pain worsens despite treatment, if you develop nausea/vomiting or weakness , shortness of breath, blood in urine or stools, feel faint or cold please go to the ER> - Billing Disposition and Condition Condition: STABLE Disposition: Home
== END 2018-05-21 22:47 | disposition home or self-care (01) ==
LOC: UCCORT 21:43
DX: S29.9XXA Unspecified injury of thorax, initial encounter (principal); S21.101A Unspecified open wound of right front wall of thorax without penetration into thoracic cavity, initial encounter; W01.0XXA Fall on same level from slipping, tripping and stumbling without subsequent striking against object, initial encounter; Y93.9 Activity, unspecified; Y92.9 Unspecified place or not applicable; Z88.0 Allergy status to penicillin; Z88.1 Allergy status to other antibiotic agents; C19 Malignant neoplasm of rectosigmoid junction; E03.9 Hypothyroidism, unspecified; I10 Essential (primary) hypertension; Z87.891 Personal history of nicotine dependence
CPT/HCPCS: 99212; G0463